=== PATIENT | female | born 1985 | race Caucasian/White ===

== ENCOUNTER → 2016-08-07 | Outpatient (CLI) | payer OTHER ==
[~2016-08-07] MED LIST: PRENTAB66 PO
--- NOTE | 2016-08-07 17:07 | REP ---
Limited OB sonography: History: Assess cervical length. Findings: Scanning demonstrates a viable single intrauterine gestation in a cephalic lie. heart rate is recorded at 133 beats per minute. Closed cervical length measured trans vaginally is 3.0 cm. No funneling is seen. S/D ratio in the umbilical cord artery by Doppler is 1.94 (2.50-3.50). KEMAL is normal at 18.3 cm. heart rate 133 beats per minute. Signed by Ankur Garnica MD 08/07/2016 06:55 P
== END ==
LOC: M RAD 15:13
PROVIDERS: ATTEND Advanced Practice Midwife
DX: Z87.51 Personal history of pre-term labor (principal)

== ENCOUNTER → 2016-08-07 | Outpatient (REF) | payer OTHER | LOC: M LAB REF 12:56 | PROVIDERS: ATTEND Advanced Practice Midwife | DX: Z34.83 Encounter for supervision of other normal pregnancy, third trimester (principal) ==

== ENCOUNTER 2016-08-17 16:31 | Outpatient (CLI) | payer OTHER ==
[~2016-08-17] VITALS: Ht 167.6 cm; Wt 95.0 kg
[~2016-08-17 16:31] MED LIST changes: -MAKE250I IM; -ZANTTAB PO
[2016-08-17] MEDS ORDERED: ZANTTAB PO (16:48)
[2016-08-17] MEDS ORDERED: MAKE250I IM (16:48)
[2016-08-17 16:55] VITALS: BP 92/51
[2016-08-17] MEDS ORDERED: BETAMETHASONE SOLUSPAN 6MG/ML INJ 5ML (J0702) IM SCH (17:00)
[2016-08-17 18:37] VITALS: BP 107/51
--- NOTE | 2016-08-17 18:55 | REP ---
LIMITED OB ULTRASOUND: 08/17/2016. Clinical history: Supervision of , third trimester. Evaluate for growth, KEMAL and cervical length. Comparison: Endovaginal cervical ultrasound 08/07/2016, complete OB ultrasound 05/07/2016 and follow-up ultrasound 07/16/2016. Findings. There is a single intrauterine gestation in vertex position with the cervix imaged on endovaginal probe portion of this exam and measuring 3.5 cm. There is an anterior grade 0 placenta without previa or abruption. Amniotic fluid volume is visually normal with an index of 9.0. The largest pocket is 5.7 cm. Mid cord umbilical artery Doppler shows an S/D ratio of 1.9 with forward diastolic flow and resistive index of 0.47. Both measurements are below the usual normal range. heart rate is 147 and regular. biometry BPD 8 cm = 32 weeks HC 28.1 cm = 30 weeks 5 days AC 28.2 cm = 32 weeks 2 days FL 6.3 cm = 32 weeks 5 days HL 5.4 cm = 31 weeks 4 days This give an average ultrasound age of 31 weeks 6 days and compares well with established dating of 31 weeks 5 days. By LMP EDC is 10/14/2016. Estimated weight 1926 grams or 4 ounces 3 ounces, is 53rd percentile for that dating. Anatomy screening did not show the cord insertion clearly, which was previously seen in the April screening exam. Otherwise, the cranial vault, lateral ventricles, choroid plexus, thalami, cavum septum pellucidum, cerebellum and cisterna magna, face and profile views, lungs, four-chamber heart view, ventricular outflow tracts, diaphragm, left-sided stomach bubble, three-vessel cord, kidneys and bladder were seen and unremarkable. spine and the extremities are not well evaluated due to position and late gestation. Impression: 1. Single intrauterine gestation in vertex presentation with cervix 3.5 cm long and closed, anterior grade 0 placenta without previa or abruption with normal amniotic fluid. 2. No visible anomalies. 3. No evidence of retroplacental hemorrhage or bleed. The presence of a nuchal cord cannot be entirely ruled out as it drapes over the neck but cannot be definitively seen wrapping around it. 4. Heart rate 147 and regular. 5. Biophysical profile score 8/8.6. Normal interval growth. Size and dates match LMP with 53rd percentile. weight at 1926 grams. Signed by Suman Neal MD 08/17/2016 08:37 P
[2016-08-17 20:25] LABS: MEAN CORPUSCULAR HEMOGLOBIN 30.5 pg (27.0-33.0); MEAN CORPUSCULAR HGB CONC 33.5 g/dl (32.0-36.5); RED CELL DISTRIBUTION WIDTH 13.8 % (11.5-14.5)
[2016-08-17] MEDS: raNITIdine SYRUP 150 MG/10 ML UDC PO SCH (21:00)
[2016-08-17] MEDS ORDERED: hydrOXYzine 50 MG TAB PO SCH (21:00)
[2016-08-18] MEDS: raNITIdine SYRUP 150 MG/10 ML UDC PO SCH (09:46)
[2016-08-18 18:18] VITALS: BP 126/58
[2016-08-18] MEDS ORDERED: BETAMETHASONE SOLUSPAN 6MG/ML INJ 5ML (J0702) IM SCH (19:30)
== END 2016-08-18 20:40 | disposition home or self-care (01) ==
LOC: M LDO 16:31
PROVIDERS: ATTEND Advanced Practice Midwife
DX: O26.893 Other specified pregnancy related conditions, third trimester (principal); R10.9 Unspecified abdominal pain; Z3A.31 31 weeks gestation of pregnancy; O09.213 Supervision of pregnancy with history of pre-term labor, third trimester; Z88.8 Allergy status to other drugs, medicaments and biological substances; O99.343 Other mental disorders complicating pregnancy, third trimester; F31.9 Bipolar disorder, unspecified
CPT/HCPCS: 36415; 59025; 76816; 76817; 76819; 80306; 81001; 82950; 85027; 87081; 87086; J0702

== ENCOUNTER → 2016-08-17 | Outpatient (REF) | payer OTHER ==
[~2016-08-17] MED LIST changes: +MAKE250I IM; +ZANTTAB PO
== END ==
LOC: M LAB REF 10:22
PROVIDERS: ATTEND Advanced Practice Midwife
DX: O60.00 Preterm labor without delivery, unspecified trimester (principal); Z3A.00 Weeks of gestation of pregnancy not specified

== ENCOUNTER 2016-08-20 13:24 | Outpatient (CLI) | payer OTHER ==
[~2016-08-20] VITALS: Ht 167.6 cm; Wt 95.0 kg
[~2016-08-20 13:24] MED LIST changes: +MAKE250I IM; +ZANTTAB PO
[2016-08-20 13:49] VITALS: BP 101/50
[2016-08-20 15:14] VITALS: BP 109/53
[2016-08-20 17:24] VITALS: BP 139/75
== END 2016-08-20 17:51 | disposition home or self-care (01) ==
LOC: M LDO 13:24
PROVIDERS: ATTEND Advanced Practice Midwife
DX: O47.03 False labor before 37 completed weeks of gestation, third trimester (principal); Z3A.32 32 weeks gestation of pregnancy; Z88.8 Allergy status to other drugs, medicaments and biological substances

== ENCOUNTER 2016-08-25 15:51 | Outpatient (CLI) | payer OTHER ==
[2016-08-25 16:18] VITALS: BP 116/73
== END 2016-08-25 18:02 | disposition home or self-care (01) ==
LOC: M LDO 15:51
PROVIDERS: ATTEND Specialist
DX: O26.893 Other specified pregnancy related conditions, third trimester (principal); Z3A.32 32 weeks gestation of pregnancy; R10.2 Pelvic and perineal pain

== ENCOUNTER 2016-08-27 17:45 | Inpatient (IN) | payer OTHER ==
[~2016-08-27] VITALS: Ht 167.6 cm; Wt 96.0 kg
[2016-08-27 18:14] VITALS: BP 103/51
[2016-08-27] MEDS ORDERED: AZITHROMYCIN 250 MG TAB PO SCH (20:00)
[2016-08-27 20:20] VITALS: BP 126/67
[2016-08-27] MEDS: AMPICILLIN SOD 2 GM in D5W MINI-BAG PLUS 100 ML IV SCH (20:31)
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
[2016-08-27 20:43] LABS: MEAN CORPUSCULAR HEMOGLOBIN 29.2 pg (27.0-33.0); MEAN CORPUSCULAR VOLUME 88.6 fl (80.0-96.0); RED CELL DISTRIBUTION WIDTH 13.8 % (11.5-14.5); WHITE BLOOD COUNT 12.1 K/mm3 (4.0-10.0)
[2016-08-27 21:12] VITALS: BP 126/64
[2016-08-27] MEDS ORDERED: diphenhydrAMINE 25 MG CAP PO PRN (22:45)
[2016-08-28 00:42] VITALS: BP 88/50
[2016-08-28 00:43] VITALS: BP 98/53
[2016-08-28] MEDS ORDERED: ACETAMINOPHEN TAB 650MG DOSE (2X325MG) PO PRN (01:00)
[2016-08-28] MEDS: AMPICILLIN SOD 2 GM in D5W MINI-BAG PLUS 100 ML IV SCH (01:28)
[2016-08-28] MEDS ORDERED: ceFAZolin 2 GM/D5W 50 ML IV BAG (J0690) As Ordered ONE (04:46)
[2016-08-28] MEDS ORDERED: BICITRA 30ML SOLN UDC As Ordered ONE (04:47)
[2016-08-28] MEDS ORDERED: MIDAZOLAM INJ 2 MG/2 ML VIAL (J2250) As Ordered ONE (04:59)
[2016-08-28] MEDS ORDERED: fentaNYL 100 MCG/2 ML INJECTION (J3010) As Ordered ONE ×2 (05:05→06:14)
[2016-08-28] MEDS ORDERED: OXYTOCIN INJ 10 UNITS/ML VIAL (J2590) As Ordered ONE (05:33)
[2016-08-28] MEDS ORDERED: ONDANSETRON 4MG/2ML VIAL (J2405) As Ordered ONE (05:33)
[2016-08-28] MEDS ORDERED: PROPOFOL 200 MG/20 ML VIAL As Ordered ONE (05:33)
[2016-08-28] MEDS ORDERED: SUCCINYLCHOLINE 100 MG/5 ML SYRINGE (J0330) As Ordered ONE (05:33)
[2016-08-28] MEDS ORDERED: KETOROLAC 60 MG/2 ML VIAL (J1885) As Ordered ONE (05:33)
[2016-08-28] MEDS ORDERED: LR 1,000 ML IV SCH ×2 (05:58→06:30)
[2016-08-28] MEDS ORDERED: RHOGAM 300 MCG (1500 IU) INJ (J2790) IM SCH (06:00)
[2016-08-28] MEDS ORDERED: PERCOCET 5MG/325MG TAB PO PRN ×3 (06:00→06:30)
[2016-08-28] MEDS ORDERED: OXYTOCIN DRIP 30 UNITS in APPROPRIATE DILUENT 1 EA IV ONE (06:00)
[2016-08-28] MEDS ORDERED: ONDANSETRON 4MG/2ML VIAL (J2405) IV PRN ×3 (06:00→06:30)
[2016-08-28] MEDS ORDERED: DOCUSATE SODIUM 100 MG CAP PO PRN (06:00)
[2016-08-28] MEDS ORDERED: MEASLES,MUMPS,RUBELLA VACCINE INJ (MMR-II) (90707) SC SCH (06:00)
[2016-08-28] MEDS: fentaNYL 100 MCG/2 ML INJECTION (J3010) IV PRN ×4 (06:16→06:40)
[2016-08-28] MEDS ORDERED: PERCOCET 5MG/325MG TAB As Ordered ONE (06:16)
[2016-08-28] MEDS ORDERED: NS 1,000 ML IV SCH (06:20)
[2016-08-28] MEDS ORDERED: NALOXONE INJ 0.4 MG/1 ML VIAL (J2310) IV PRN (06:30)
[2016-08-28] MEDS ORDERED: EPIDURAL/PCA KEYS XX PRN (06:30)
[2016-08-28] MEDS ORDERED: diphenhydrAMINE INJ 50MG/ML VIAL (J1200) IV PRN (06:30)
[2016-08-28] MEDS ORDERED: MORPHINE 1MG/ML IN 0.9% NACL 100ML IV BAG IV PRN (06:30)
[2016-08-28] MEDS ORDERED: NALBUPHINE HCL 10 MG/ML AMP (J2300) IV PRN (06:30)
[2016-08-28] MEDS ORDERED: METOCLOPRAMIDE INJ 10MG/2ML VIAL (J2765) IV PRN (06:30)
[2016-08-28] MEDS ORDERED: MEPERIDINE INJ 25 MG/ML VIAL (J2175) IV PRN (06:30)
[2016-08-28] MEDS ORDERED: MORPHINE 1MG/ML IN 0.9% NACL 100ML IV BAG As Ordered ONE (06:34)
[2016-08-28 07:27] LABS: METHADONE URINE NEGATIVE (NEGATIVE)
[2016-08-28 07:30] VITALS: BP 80/52
--- NOTE | 2016-08-28 07:56 | REP ---
Clinical: Stat section. Technique: Portable supine intraoperative view of the abdomen and pelvis. Findings: Bowel gas pattern is nonspecific. No foreign body material or instrumentation appreciated. Impression: No foreign body or instrument identified. Signed by Faisal Harvey MD 08/28/2016 07:47 A
[2016-08-28 08:00] VITALS: BP 99/52
[2016-08-28 09:00] VITALS: BP 102/54
[2016-08-28] MEDS ORDERED: busPIRone 10 MG TAB PO SCH (09:00)
[2016-08-28] MEDS ORDERED: PRENATAL VITAMIN TAB PO SCH (09:00)
[2016-08-28] MEDS ORDERED: LACTATED RINGER'S 1000 ML IV STA (09:56)
[2016-08-28 10:00] VITALS: BP 95/62
[2016-08-28] MEDS ORDERED: KETOROLAC 30 MG/ML VIAL (J1885) IV SCH (12:00)
--- NOTE | 2016-08-29 11:15 | RO ---
DATE OF PROCEDURE: 08/28/2016 PREPROCEDURE DIAGNOSIS: Prolonged bradycardia and non-reassuring heart tracing. POSTPROCEDURE DIAGNOSIS: Prolonged bradycardia and non-reassuring heart tracing. PROCEDURE: Truly emergent primary delivery via Pfannenstiel skin incision. SURGEON: Dr. Jona Chou. MILL WORK: Nany Villafuerte, Certified Nurse Dry Cleaning Supervisor. ANESTHESIA: General. ESTIMATED BLOOD LOSS: FLUIDS: Unknown. SPECIMEN: Placenta. INDICATION: Mrs. Chao is a 30-year-old patient at approximately 33 weeks with premature ruptured membranes that was admitted to the [facility] practice of which I am not a part. Mrs. Villafuerte, the certified nurse relay dispatcher, was taking care of this patient when a terminal bradycardia occurred. Because I was the only doctor in the hospital and despite my not being a part of their practice, they called me in the call room. I responded immediately and when I entered the patient's room, the bed was already being disconnected from the wall and the patient was being rolled to the operating room. I verbally instructed the patient that we would have to perform an emergent delivery under general anesthesia to give the best chance of life to her unborn baby. As for the timeline as described to me by Mrs. Villafuerte the relay dispatcher at 4:42, she was in the room, diagnosed the term bradycardia, called the at 4:44. I was called at 4:[address] Prabhakar was called who was at his home and who immediately came en route. We were in the operating room at 4:50. Skin incision was at 4:56 and infant was born at 4:57. DESCRIPTION: Patient was taken from the delivery room via hospital bed to the operating room where she was emergently transferred to the operating room table. Her legs were strapped down and a betadine splash prep was performed. As soon as Dr. Joshua informed me that the cord was between the patient's vocal cords and secure and confirmed, I performed a stat Pfannenstiel skin incision down to the layer of the fascia which was extended with a fascial technique bilaterally. I then entered the peritoneal cavity bluntly and I could quickly ascertain no scar tissue present. Created an adequate peritoneal window. Bladder blade was placed and a low transverse uterine incision was quickly performed with the infant easily delivered. The infant was limp, had no tone and did not cry. Skin incision to baby's was less than 1 minute. The cord was clamped times two and cut. The infant was handed to the awaiting resuscitation team. Dr. Daly, the job superintendent arrived shortly after delivery. Please see their note for resuscitation details of the infant. Cord gases were attempted, however there was no blood in any of the arterial blood vessels despite trying three times I was able to obtain a sample of blood for the venous gas, however, I was informed later that this clotted and was not runable. Cord blood was obtained for typing. Pitocin was started. Fundus was massaged and the placenta was delivered under traction without difficulty. The uterus was then delivered through the abdominal wall wrapped in a warm sponge and the uterus was cleared of all clots and debris with two dry sponges. Bladder blade was placed and a running suture of #0 Vicryl from left to right in locked fashion was used to close the hysterotomy. #0 Monocryl was then used to imbricate. Both fallopian tubes and ovaries were normal. Tone was good. The uterus was returned to its anatomical position after copious irrigation behind the uterus. Colic gutters were cleared of all clots and debris and one final inspection of the uterine cavity showed hemostasis. At this time, Dr. Prabhakar relieved me as the patient was a patient of their practice and for all final fluid and further procedure and findings, please see Dr. Prabhakar's dictation. Again I want to re-emphasize that I knew nothing of the history and/or physical on this patient and I intervened due to the dire nature of the situation and to give the unborn fetus the best chance. Dr. Prabhakar's group will see the patient for all postoperative and followup care. SORAIDA
[2016-08-29] MEDS ORDERED: IBUPROFEN 800 MG TAB PO SCH (14:00)
--- NOTE | 2016-08-31 10:22 | RO ---
DATE OF PROCEDURE: 08/28/2016 PREPROCEDURE DIAGNOSIS: Status post emergent section for prolonged bradycardia. POSTOPERATIVE DIAGNOSIS: Status post emergent section for prolonged bradycardia. PROCEDURE: Closure of abdominal wall layers following primary section. SURGEON: Kalyan Prabhakar MD MACHINE QUILT STUFFER: Anita Villafuerte CNM ANESTHESIA: General. ESTIMATED BLOOD LOSS: 600 mL total. FINDINGS/DESCRIPTION OF PROCEDURE: The patient was status post emergent section. The baby was already delivered when I arrived. The uterus had already been closed in multiple layers. I scrubbed in to the procedure and relieved Dr. Chou, who had done the emergent section. Upon inspection of the uterus it was intact with good hemostasis. All peritoneal surfaces appeared to be hemostatic and intact. The pericolic gutters were cleared of any clots or debris. The peritoneum was then closed with #2-0 Vicryl in a fashion. The fascia was closed with #0 Vicryl in a running fashion. Subcutaneous tissue was irrigated. Deep layers were closed with #3-0 chromic. The skin was closed with #4-0 Monocryl subcuticular sutures. Sponge and instrument counts were not done due to the emergent nature of the procedure. An abdominal x-ray was performed postoperatively. There was no evidence of retained sponges or instruments in the abdomen. The patient was subsequently extubated and went to recovery room. SORAIDA
== END 2016-08-28 13:20 | disposition short-term general hospital (02) | DRG 540 ==
LOC: M LDO 17:45 → M LDI 18:47 → M OBS 08-28 07:33
PROVIDERS: ADMIT Advanced Practice Midwife; ATTEND Advanced Practice Midwife
PROC: 10D00Z1 Extraction of Products of Conception, Low, Open Approach (ICD-10-PCS; principal; 2016-08-28 05:54)
DX: O42.012 Preterm premature rupture of membranes, onset of labor within 24 hours of rupture, second trimester (principal); Z37.0 Single live birth; Z3A.33 33 weeks gestation of pregnancy; F17.210 Nicotine dependence, cigarettes, uncomplicated; O99.334 Smoking (tobacco) complicating childbirth; Z79.899 Other long term (current) drug therapy; Z88.8 Allergy status to other drugs, medicaments and biological substances; O76 Abnormality in fetal heart rate and rhythm complicating labor and delivery; O31.11X0 Continuing pregnancy after spontaneous abortion of one fetus or more, first trimester, not applicable or unspecified

== ENCOUNTER 2017-05-04 23:42 | Emergency (ER) | payer MEDICAID, OTHER ==
[2017-05-05] MEDS: BENZONATATE 100 MG CAP PO ×2 (03:23)
[2017-05-05] MEDS: ALBUTEROL 90 MCG/ACT 8GM HFA INHALER INH ×2 (03:23)
== END 2017-05-05 03:30 | disposition home or self-care (01) ==
LOC: M ED 23:42
DX: J06.9 Acute upper respiratory infection, unspecified (principal); F17.210 Nicotine dependence, cigarettes, uncomplicated; Z79.899 Other long term (current) drug therapy; Z88.8 Allergy status to other drugs, medicaments and biological substances
CPT/HCPCS: 87804

== ENCOUNTER → 2017-05-06 | Outpatient (CLI) | payer OTHER, MEDICAID | LOC: M RAD 10:23 | DX: O03.9 Complete or unspecified spontaneous abortion without complication (principal); Z3A.01 Less than 8 weeks gestation of pregnancy | CPT/HCPCS: 76801 ==

== ENCOUNTER → 2017-07-16 | Outpatient (CLI) | payer OTHER ==
[2017-07-16 09:52] LABS: HEMATOCRIT 39.9 % (36.0-47.0); HEMOGLOBIN 12.6 g/dl (12.0-15.5); MEAN CORPUSCULAR HEMOGLOBIN 26.6 pg (27.0-33.0); MEAN CORPUSCULAR HGB CONC 31.6 g/dl (32.0-36.5); MEAN CORPUSCULAR VOLUME 84.4 fl (80.0-96.0); PLATELET COUNT, AUTOMATED 257 10^3/uL (150-450); RED BLOOD COUNT 4.73 10^6/uL (4.00-5.40); RED CELL DISTRIBUTION WIDTH 14.1 % (11.5-14.5); WHITE BLOOD COUNT 8.7 10^3/uL (4.0-10.0)
[2017-07-16 10:15] LABS: ESTIMATED AVERAGE GLUCOSE 100 MG/DL (60-110); HEMOGLOBIN A1c 5.1 %
[2017-07-16 10:25] LABS: ALBUMIN 3.8 GM/DL (3.2-5.2); ALBUMIN/GLOBULIN RATIO 1.23 (1.00-1.93); ALKALINE PHOSPHATASE 60 U/L (45-117); ALT/SGPT 18 U/L (12-78); ANION GAP 5 MEQ/L (8-16); AST/SGOT 10 U/L (7-37); BILIRUBIN,TOTAL 0.2 MG/DL (0.2-1.0); BLOOD UREA NITROGEN 11 MG/DL (7-18); CALCIUM LEVEL 8.7 MG/DL (8.5-10.1); CARBON DIOXIDE LEVEL 30 MEQ/L (21-32); CHLORIDE LEVEL 107 MEQ/L (98-107); CHOLESTEROL LEVEL 143 MG/DL (<200); CHOLESTEROL RISK RATIO 2.344 (<5); CREATININE FOR GFR 0.83 MG/DL (0.55-1.30); FERRITIN 13 NG/ML (8-252); GLOMERULAR FILTRATION RATE > 60.0 (>60); GLUCOSE, FASTING 85 MG/DL (70-100); HDL CHOLESTEROL 61 MG/DL (>40); IRON (FE) 26 UG/DL (50-170); LDL CHOLESTEROL 68.2 MG/DL (<100); NON-HDL-C 82 MG/DL; PERCENT SATURATION 6.8 % (13.2-45.0); POTASSIUM SERUM 4.4 MEQ/L (3.5-5.1); SODIUM LEVEL 142 MEQ/L (136-145); THYROXINE (T4) 7.9 UG/DL (4.5-12.0); TOTAL IRON BINDING CAPACITY 381 UG/DL (250-450); TOTAL PROTEIN 6.9 GM/DL (6.4-8.2); TRIGLYCERIDES LEVEL 69 MG/DL (<150)
[2017-07-16 10:26] LABS: TOTAL 25(OH) VITAMIN D 32.2 NG/ML (30.0-100.0)
[2017-07-16 10:27] LABS: TOTAL T3 116.2 NG/DL (60.0-181.0)
== END ==
LOC: M LAB 09:13
DX: D64.9 Anemia, unspecified (principal); R53.83 Other fatigue
CPT/HCPCS: 71046

== ENCOUNTER → 2017-09-10 | Outpatient (CLI) | payer OTHER | LOC: M RAD 09:52 | DX: M54.2 Cervicalgia (principal) | CPT/HCPCS: 72052 ==

== ENCOUNTER → 2018-03-17 | Outpatient (CLI) | payer MEDICAID, OTHER ==
[2018-03-17 14:36] LABS: BASO % 0.4 % (0.0-1.0); EOS # 0.2 10^3/uL (0.0-0.50); HEMATOCRIT 37.8 % (36.0-47.0); HEMOGLOBIN 12.5 g/dl (12.0-15.5); IMMATURE GRANULOCYTE % 1.4 % (0-3.0); LYMPH % 21.2 % (24.0-44.0); MEAN CORPUSCULAR HEMOGLOBIN 28.6 pg (27.0-33.0); MEAN CORPUSCULAR HGB CONC 33.1 g/dl (32.0-36.5); MEAN CORPUSCULAR VOLUME 86.5 fl (80.0-96.0); MONO # 0.5 10^3/uL (0.0-0.8); NEUTROPHILS # 6.7 10^3/uL (1.8-7.7); PLATELET COUNT, AUTOMATED 249 10^3/uL (150-450); RED BLOOD COUNT 4.37 10^6/uL (4.00-5.40); RED CELL DISTRIBUTION WIDTH 13.2 % (11.5-14.5); WHITE BLOOD COUNT 9.6 10^3/uL (4.0-10.0)
[2018-03-17 17:05] LABS: CHLAMYDIA DNA AMPLIFICATION NEGATIVE (NEGATIVE); GC DNA AMPLIFICATION NEGATIVE (NEGATIVE)
[2018-03-18 11:18] LABS: HEPATITIS C VIRUS ABY INDEX 0.1 INDEX (<0.8)
[2018-03-18 11:18] LABS: HBsAg Prenatal NEGATIVE (NEGATIVE); HIV 1&2 SCREEN CENTAUR NEGATIVE (NEGATIVE); RUBELLA IgG QUALITATIVE IMMUNE (IMMUNE)
== END ==
LOC: M LAB 14:04
DX: Z34.81 Encounter for supervision of other normal pregnancy, first trimester (principal); Z3A.00 Weeks of gestation of pregnancy not specified
CPT/HCPCS: 86762

== ENCOUNTER → 2018-03-21 | Outpatient (CLI) | payer MEDICAID | LOC: M SMT 13:39 | DX: Z34.81 Encounter for supervision of other normal pregnancy, first trimester (principal); Z36.89 Encounter for other specified antenatal screening | CPT/HCPCS: 36415 ==

== ENCOUNTER 2018-03-23 22:32 | Emergency (ER) | payer OTHER, MEDICAID, SELFPAY ==
[2018-03-23] MEDS: NS 1,000 ML IV (23:18)
[2018-03-23 23:21] LABS: BASO # 0.1 10^3/uL (0.0-0.2); BASO % 0.5 % (0.0-1.0); EOS # 0.2 10^3/uL (0.0-0.50); EOS % 1.5 % (0.0-3.0); HEMATOCRIT 37.2 % (36.0-47.0); HEMOGLOBIN 12.2 g/dl (12.0-15.5); IMMATURE GRANULOCYTE % 0.8 % (0-3.0); LYMPH # 2.6 10^3/uL (1.5-4.5); LYMPH % 21.6 % (24.0-44.0); MEAN CORPUSCULAR HEMOGLOBIN 28.4 pg (27.0-33.0); MEAN CORPUSCULAR HGB CONC 32.8 g/dl (32.0-36.5); MEAN CORPUSCULAR VOLUME 86.5 fl (80.0-96.0); MONO # 0.7 10^3/uL (0.0-0.8); MONO % 5.5 % (0.0-5.0); NEUTROPHILS # 8.3 10^3/uL (1.8-7.7); NEUTROPHILS % 70.1 % (36.0-66.0); PLATELET COUNT, AUTOMATED 230 10^3/uL (150-450); RED CELL DISTRIBUTION WIDTH 13.4 % (11.5-14.5); WHITE BLOOD COUNT 11.9 10^3/uL (4.0-10.0)
[2018-03-24 00:02] LABS: ALBUMIN 3.2 GM/DL (3.2-5.2); ALKALINE PHOSPHATASE 53 U/L (45-117); ALT/SGPT 14 U/L (12-78); ANION GAP 9 MEQ/L (8-16); AST/SGOT 12 U/L (7-37); BILIRUBIN,DIRECT < 0.1 MG/DL (0.0-0.2); BILIRUBIN,TOTAL 0.1 MG/DL (0.2-1.0); BLOOD UREA NITROGEN 13 MG/DL (7-18); CALCIUM LEVEL 8.4 MG/DL (8.5-10.1); CARBON DIOXIDE LEVEL 24 MEQ/L (21-32); CHLORIDE LEVEL 105 MEQ/L (98-107); CREATININE FOR GFR 0.67 MG/DL (0.55-1.30); GLOMERULAR FILTRATION RATE > 60.0 (>60); GLUCOSE, FASTING 84 MG/DL (70-100); HCG, SERUM QUANTITATIVE 44658 MIU/ML; LIPASE 135 U/L (73-393); POTASSIUM SERUM 3.7 MEQ/L (3.5-5.1); SODIUM LEVEL 138 MEQ/L (136-145); TOTAL PROTEIN 6.4 GM/DL (6.4-8.2)
[2018-03-24 00:17] LABS: KETONE, URINE AUTO RFX NEGATIVE (NEGATIVE); LEUKOCYTE ESTERASE UR AUTO RFX NEGATIVE (NEGATIVE); NITRITE, URINE AUTO RFX NEGATIVE (NEGATIVE); RBC, URINE AUTO RFX 0 /HPF (0-3); SPECIFIC GRAVITY UR AUTO RFX 1.016 (1.002-1.035); SQUAM EPITHELIAL CELL UR AURFX 0 /HPF (0-6); WBC, URINE AUTO RFX 0 /HPF (0-3)
== END 2018-03-24 00:56 | disposition home or self-care (01) ==
LOC: M ED 03-24 00:56
DX: O26.891 Other specified pregnancy related conditions, first trimester (principal); O99.341 Other mental disorders complicating pregnancy, first trimester; F31.9 Bipolar disorder, unspecified; F41.9 Anxiety disorder, unspecified; Z88.8 Allergy status to other drugs, medicaments and biological substances; Z3A.11 11 weeks gestation of pregnancy
CPT/HCPCS: 76801

== ENCOUNTER → 2018-04-05 | Outpatient (CLI) | payer OTHER ==
[~2018-04-05] MED LIST changes: +CEFD1CAP8 PO; +FERR325T3 PO; +HYDR-3363 PO; +LATU20TA PO; +MUCI600T37 PO; +TESS100C PO; +TOPA50TA8 PO; +VITA50005 PO; +VYVA20CA PO; +[UNRECOGNIZED DRUG - OTHER] PO
== END ==
LOC: M SMT 15:04
PROVIDERS: ATTEND Advanced Practice Midwife
DX: O09.211 Supervision of pregnancy with history of pre-term labor, first trimester (principal)

== ENCOUNTER → 2018-05-11 | Outpatient (CLI) | payer OTHER ==
[2018-05-11 12:44] LABS: ALBUMIN 2.9 GM/DL (3.2-5.2); ALT/SGPT 11 U/L (12-78); BILIRUBIN,DIRECT < 0.1 MG/DL (0.0-0.2); BILIRUBIN,TOTAL 0.2 MG/DL (0.2-1.0); GLUCOSE CHALLENGE TEST 1 HOUR 76 MG/DL (LESS THAN 140)
--- NOTE | 2018-05-11 22:41 | REP ---
Clinical: Anatomical evaluation. Comparison: 03/23/2018 the . Findings: Examination demonstrates a single live intrauterine in breech presentation. motion is identified by technologist. Placenta is noted posterior and grade there are grade zero without evidence for placenta previa or abruption. Amniotic fluid volume is normal. Cervix measures 5.0 cm in length and appears closed. Nuchal cord cannot be excluded. Gestational age by LMP 17 weeks 6 days with PABLO 10/13/2018 . Gestational age by current measurements 18 weeks 1 day with PABLO 10/11/2018 . FHR equals 158 beats per minute. BPD 4.0 cm 18 weeks 1 day HC 14.1 cm 17 weeks 3 days AC 12.5 cm 18 weeks 1 day FL 2.9 cm 18 weeks 5-day HL 2.6 cm 18 weeks 2 days HC/AC ratio 1.13 Estimated weight 234 grams (63rd percentile). Anatomical assessment demonstrates normal structures including cranium, choroid plexus, cavum, cerebellum/posterior fossa, facial features, lungs, diaphragm, stomach, cord insertion/three-vessel cord, bladder, spine, and lower extremities. Limited evaluation of the facial profile, heart/ventricular outflow tracts, kidneys and upper extremities due to lie and maternal body habitus. Impression: Single live intrauterine in breech presentation demonstrating appropriate interval growth. Anatomical limitations as noted above warrant reevaluation and follow-up. Nuchal cord cannot be excluded. Electronically Signed by Faisal Harvey MD 05/11/2018 10:33 P
== END ==
LOC: M LAB 09:30
PROVIDERS: ATTEND Advanced Practice Midwife
DX: O34.211 Maternal care for low transverse scar from previous cesarean delivery (principal); Z3A.17 17 weeks gestation of pregnancy

== ENCOUNTER → 2018-06-09 | Outpatient (CLI) | payer OTHER ==
--- NOTE | 2018-06-10 09:13 | REP ---
Clinical: Anatomical evaluation. Comparison: 05/11/2018 . Findings: Examination demonstrates a single live intrauterine in transverse (head to maternal right) presentation. motion is identified by technologist. Placenta is noted posterior and grade grade 1 without evidence for placenta previa or abruption. Amniotic fluid volume is normal. Cervix measures 4.2 cm in length and appears closed. No evidence for nuchal cord. Gestational age by LMP 22 weeks 0 days with PABLO 10/13/2018 . Gestational age by current measurements 21 weeks 5 days with PBALO 10/15/2018 . FHR equals 144 beats per minute. Estimated weight 488 grams ( 54th percentile). Anatomical assessment demonstrates normal structures including cranium, choroid plexus, cavum, cerebellum/posterior fossa, facial features, lungs, four-chamber heart/ventricular outflow tracts, diaphragm, stomach, cord insertion/three-vessel cord, kidneys/bladder, spine, and extremities. Impression: Single live intrauterine in transverse lie demonstrating appropriate interval growth. In conjunction with prior examination, anatomical assessment is complete and normal. Electronically Signed by Faisal Harvey MD 06/10/2018 09:02 A
== END ==
LOC: M SMT 12:57
PROVIDERS: ATTEND Advanced Practice Midwife
DX: O09.211 Supervision of pregnancy with history of pre-term labor, first trimester (principal); Z3A.21 21 weeks gestation of pregnancy

== ENCOUNTER 2018-06-23 00:07 | Outpatient (CLI) | payer OTHER ==
[~2018-06-23] VITALS: Ht 170.2 cm; Wt 108.7 kg
[2018-06-23 00:25] VITALS: BP 106/56
[2018-06-23 01:14] LABS: APPEARANCE, URINE CLEAR (CLEAR); BACTERIA, URINE AUTO NEGATIVE (NEGATIVE); BILIRUBIN, URINE AUTO NEGATIVE (NEGATIVE); BLOOD, URINE BLOOD NEGATIVE (NEGATIVE); COLOR, URINE YELLOW (YELLOW); GLUCOSE, URINE (UA) AUTO NEGATIVE (NEGATIVE); KETONE, URINE AUTO NEGATIVE (NEGATIVE); LEUKOCYTE ESTERASE, URINE AUTO NEGATIVE (NEGATIVE); MUCUS, URINE SMALL (NEGATIVE); NITRITE, URINE AUTO NEGATIVE (NEGATIVE); PROTEIN, URINE AUTO NEGATIVE (NEGATIVE); RBC, URINE AUTO 1 /HPF (0-3); SPECIFIC GRAVITY URINE AUTO 1.028 (1.002-1.035); SQUAMOUS EPITHELIAL CELL UR AU 0 /HPF (0-6); WBC, URINE AUTO 2 /HPF (0-3)
[2018-06-23] MEDS ORDERED: ACETAMINOPHEN 500 MG TAB PO PRN (01:30)
[2018-06-23 01:32] VITALS: BP 118/74
--- NOTE | 2018-06-23 06:35 | IPN ---
DATE: 06/23/2017 SUBJECTIVE: Mireya is a 32-year-old, 5, para 2-2-0-3, at of 24 weeks' gestation with an expected date of confinement (EDC) of 10/13/2018 based on last menstrual period and confirmed by first trimester ultrasound. She presents to labor and delivery today with a report of just generalized back pain and some pubic discomfort. She does report being ill early in the evening with recurrent bouts of diarrhea. She denies any recent episode, the last episode at 1900. She does deny fever, body aches and chills. Denies vaginal bleeding, leakage of fluid and painful contractions. The fetus has been active. Of note, her child was ill with the same gastroenteritis for the last 2 days. care initiated at [facility] in the first trimester. course complicated by a history of premature rupture of membranes (PPROM) x two, delivery with , prior section, current diagnosis of cholestasis. She is administering Layla shots to herself at home weekly. OBSTETRICAL HISTORY: June 2005, 40 weeks gestation, 7 pound 11 ounce female, vaginal delivery, uncomplicated. July 2008, 40 weeks gestation, 6 pound 7 ounce male, vaginal delivery, uncomplicated. September 2012, 23 weeks PPROM, subchorionic hemorrhage, fetus . August 2016, 33 weeks PPROM, with a stat section for bradycardia. OBSTETRIC LABS: A+, antibody screen negative, rubella immune, VDRL nonreactive. Urine culture no growth. Hepatitis B surface antigen negative. HIV negative. Hepatitis C antibody not performed. Gonorrhea and chlamydia negative. Panorama testing DNA, low risk, female fetus, bile acid salts 12.8 in March. Early 1-hour glucose test 76. Liver enzymes, AST 8, ALT 11, normal. PAST MEDICAL HISTORY: Severe anemia following section. She did undergo blood transfusion. Smoker prior to . Childhood varicella. FAMILY HISTORY: Heart disease, epilepsy, psychiatric illness, depression, autism, cystic fibrosis. SURGERIES: section. SOCIAL HISTORY: The patient is single, however, her partner is at bedside and supportive. She was a smoker prior to . Denies alcohol and drug use. No history of any sexually transmitted infections. Denies history of abuse - physical, sexual and emotional. ALLERGIES: - LAMICTAL - COMPAZINE CURRENT MEDICATIONS: - vitamin - iron - vitamin - [place] - Zofran as needed - Reglan as needed - Lexapro 5 mg OBJECTIVE: Vital signs are stable. Temperature 98.5, pulse 75, BP is 106/56. She is alert and oriented times three. She does not appear uncomfortable. heart rate is 145. Appropriate for gestational age. Her abdomen is soft, nontender. There is no pattern of contractions. Sterile speculum exam negative Valsalva, negative pooling, negative ferning, negative Nitrazine. Normal physiological discharge. Sterile vaginal exam, her cervix is long, thicken and closed. UA: negative nitrites, negative blood, negative leuks ASSESSMENT: Intrauterine at 24 weeks. heart rate appropriate for 24 weeks of gestational age. Likely a viral illness. PLAN: Discharge the patient to home. She has Tylenol for general aches and pains. She is to keep her visit which is scheduled next week. Continue her medications as ordered. I did review signs or symptoms of PPROM, labor, danger signs, access to care. The patient and her partner have had all their questions answered and do desire to be discharged. SORAIDA
== END 2018-06-23 01:35 | disposition home or self-care (01) ==
LOC: M LDO 00:07
PROVIDERS: ATTEND Advanced Practice Midwife
DX: O26.892 Other specified pregnancy related conditions, second trimester (principal); R10.30 Lower abdominal pain, unspecified; Z3A.24 24 weeks gestation of pregnancy

== ENCOUNTER 2018-08-24 17:58 | Outpatient (CLI) | payer OTHER ==
[~2018-08-24] VITALS: Ht 170.2 cm; Wt 110.0 kg
[2018-08-24] MEDS ORDERED: LEXA1TAB PO (18:18)
[2018-08-24] MEDS ORDERED: VITAD1000T PO (18:18)
[2018-08-24] MEDS ORDERED: UNIS25TA3 PO (18:18)
[2018-08-24 21:39] VITALS: BP 127/52
--- NOTE | 2018-08-24 21:56 | REPVR ---
EXAM: US , Limited EXAM DATE/TIME: 08/24/2018 9:01 PM CLINICAL HISTORY: 32 years old, female; Signs and symptoms; Lmp or gestational age (in weeks): 32; Antepartum complications; Other: C/O leaking fluid; ; Additional info: C/O leaking fluid. Estefania TECHNIQUE: Imaging protocol: Real-time ultrasound of the maternal uterus with image documentation. Exam focused on the clinical indication. COMPARISON: US OBS FOLL UP OR REPEAT EACH GES 08/05/2018 10:48 AM FINDINGS: There is a single intrauterine gestation in cephalic presentation. heart rate measures 141 beats per minute. anatomic measurements were not obtained, and anatomic details were not assessed on this limited exam. The amniotic fluid index measures 20.1 cm. The placenta is posterior, without demonstrated previa. The cervix is closed and measures 4.4 cm in length. IMPRESSION: Single viable intrauterine gestation without demonstrated complication. Electronically signed by: Dean Miller On 08/24/2018 21:55:46 PM
--- NOTE | 2018-08-24 23:21 | IPN ---
DATE: 08/24/2018 Mireya is a 32-year-old 5, para 2-2-0-3, 32-6/7 weeks gestation with an EDC of 10/13/2018 based on last menstrual period and confirmed by first trimester ultrasound. She presents to labor and delivery today following an add-on appointment in the office for complaint of decreased movement, backache and leakage of fluid from the vagina. She reported extreme low back pain that makes it difficult to move at times. She does deny any regular painful contractions and vaginal bleeding. Her care was initiated at [facility] in the first trimester. course complicated by a history of premature rupture of membranes (PPROM) times two. [place] injections have been initiated starting at week 16. Prior section with a desire for vaginal after (). Cholestasis was diagnosed in the first trimester. Planned delivery at 37 weeks. . OBSTETRICAL HISTORY June 2005: 40 weeks gestation 7 pound 11 ounce female vaginal delivery. July 2008: 40 weeks gestation with 6 pounds 7 ounces male vaginal delivery. September 2012: 23 weeks, 1 pound female, vaginal delivery, PPROM. . August 2016: 31 weeks 4 days, 4 pounds 15 ounce male, PPROM. section stat. OBSTETRIC LABS Blood type A+, antibody screen negative, rubella immune, VDRL nonreactive. Urine culture no growth. Hep B surface antigen negative, HIV negative. Hepatitis C antibody nonreactive. Gonorrhea and chlamydia negative. Panorama testing low risk for aneuploidy female fetus. She has not had her gestational diabetic screening nor has she had her repeat bile acids drawn as requested. PAST MEDICAL HISTORY: Cigarette smoker prior to . Childhood varicella. SURGERIES section, blood transfusion with the last delivery, severe anemia. FAMILY HISTORY: Pulmonary hypertension, CHF, psychiatric diagnoses depression, autism. SOCIAL HISTORY The patient is single. Her partner is supportive. He is not at bedside but she does have a friend present. She reports she quit smoking during . Denies alcohol and drug use. No history of any sexually transmitted infections and denies history of abuse physical, sexual or emotional. ALLERGIES: LAMICTAL and COMPAZINE. CURRENT MEDICATIONS - Zofran 4 mg ODT as needed (p.r.n.) - Layla weekly injections - ferrous gluconate by mouth twice a day - vitamin D - ursodiol 500 mg three times a day - vitamins. OBJECTIVE Temperature 97.6, pulse 93, respirations 18, BP 127/52. heart rate is 140 with moderate variability, positive accelerations, no decelerations observed. There is no pattern of regular contractions. She had a sterile speculum exam performed in the office by Anisa Kirkland CNM. Reported negative Valsalva, negative pooling, negative Nitrazine, negative ferning. Cervix appeared long, thick and closed. She has undergone an ultrasound here at labor and delivery. Amniotic fluid index is 20.1 cm. Placenta is posterior, no previa. Fetus is cephalic presentation. ASSESSMENT Intrauterine at 32-6/7. heart rate category one not ruptured, not in labor. PLAN Discharge the patient to home. Keep next scheduled visit on August 26. I did review signs and symptoms of labor, kick counts and danger signs, signs and symptoms of premature rupture of membranes. Reviewed palliative measures for a normal discomforts of related to low back pain. The patient has had all her questions answered and is agreeable to discharge home. I did review access to care. SORAIDA
== END 2018-08-24 21:51 | disposition home or self-care (01) ==
LOC: M LDO 17:58
PROVIDERS: ATTEND Advanced Practice Midwife
DX: O36.8130 Decreased fetal movements, third trimester, not applicable or unspecified (principal); O26.893 Other specified pregnancy related conditions, third trimester; N89.8 Other specified noninflammatory disorders of vagina; O47.03 False labor before 37 completed weeks of gestation, third trimester; Z3A.32 32 weeks gestation of pregnancy

== ENCOUNTER → 2018-08-26 | Outpatient (REF) | payer OTHER ==
[~2018-08-26] MED LIST changes: +LEXA1TAB PO; +MAPA500T2 PO; +UNIS25TA3 PO; +VITAD1000T PO
== END ==
LOC: M LAB REF 17:40
PROVIDERS: ATTEND Advanced Practice Midwife
DX: O09.213 Supervision of pregnancy with history of pre-term labor, third trimester (principal); Z3A.00 Weeks of gestation of pregnancy not specified

== ENCOUNTER → 2018-08-27 | Outpatient (CLI) | payer OTHER ==
[~2018-08-27] MED LIST changes: +OXYC1TAB23 PO
[2018-08-27 11:40] LABS: HEMATOCRIT 35.4 % (36.0-47.0); HEMOGLOBIN 11.6 g/dl (12.0-15.5); MEAN CORPUSCULAR HEMOGLOBIN 28.6 pg (27.0-33.0); MEAN CORPUSCULAR HGB CONC 32.8 g/dl (32.0-36.5); MEAN CORPUSCULAR VOLUME 87.2 fl (80.0-96.0); PLATELET COUNT, AUTOMATED 199 10^3/uL (150-450); RED BLOOD COUNT 4.06 10^6/uL (4.00-5.40); WHITE BLOOD COUNT 9.2 10^3/uL (4.0-10.0)
== END ==
LOC: M LAB 10:46
PROVIDERS: ATTEND Advanced Practice Midwife
DX: O09.212 Supervision of pregnancy with history of pre-term labor, second trimester (principal)

== ENCOUNTER → 2018-08-29 | Outpatient (CLI) | payer OTHER ==
[~2018-08-29] MED LIST changes: -OXYC1TAB23 PO
== END ==
LOC: M LAB 09:06
PROVIDERS: ATTEND Advanced Practice Midwife
DX: O09.212 Supervision of pregnancy with history of pre-term labor, second trimester (principal); Z3A.00 Weeks of gestation of pregnancy not specified

== ENCOUNTER 2018-09-06 19:09 | Outpatient (CLI) | payer OTHER ==
[~2018-09-06] VITALS: Ht 170.2 cm; Wt 111.6 kg
[~2018-09-06 19:09] MED LIST changes: -MAPA500T2 PO
[2018-09-06 19:31] VITALS: BP 113/60
[2018-09-06] MEDS ORDERED: MAPA500T2 PO (19:43)
[2018-09-06] MEDS ORDERED: ZANTTAB PO (19:43)
[2018-09-06] MEDS ORDERED: LACTATED RINGER'S 1000 ML IV STA (19:52)
[2018-09-06 20:09] LABS: HEMOGLOBIN 11.1 g/dl (12.0-15.5); MEAN CORPUSCULAR HEMOGLOBIN 28.6 pg (27.0-33.0); MEAN CORPUSCULAR HGB CONC 32.6 g/dl (32.0-36.5); MEAN CORPUSCULAR VOLUME 87.6 fl (80.0-96.0); PLATELET COUNT, AUTOMATED 191 10^3/uL (150-450); RED BLOOD COUNT 3.88 10^6/uL (4.00-5.40); WHITE BLOOD COUNT 9.1 10^3/uL (4.0-10.0)
[2018-09-06 20:24] LABS: INR 0.93; PROTHROMBIN TIME 12.6 SECONDS (12.1-14.4)
[2018-09-06 20:25] LABS: AMYLASE 44 U/L (25-115); BLOOD UREA NITROGEN 10 MG/DL (7-18); CALCIUM LEVEL 8.4 MG/DL (8.5-10.1); CARBON DIOXIDE LEVEL 23 MEQ/L (21-32); CHLORIDE LEVEL 105 MEQ/L (98-107); CREATININE FOR GFR 0.56 MG/DL (0.55-1.30); GLOMERULAR FILTRATION RATE > 60.0 (>60); GLUCOSE, FASTING 116 MG/DL (70-100); LIPASE 130 U/L (73-393); POTASSIUM SERUM 3.4 MEQ/L (3.5-5.1); SODIUM LEVEL 139 MEQ/L (136-145)
[2018-09-06 21:05] VITALS: BP 109/72
[2018-09-06 21:39] LABS: APPEARANCE, URINE CLEAR (CLEAR); BACTERIA, URINE AUTO NEGATIVE (NEGATIVE); BILIRUBIN, URINE AUTO NEGATIVE (NEGATIVE); BLOOD, URINE BLOOD NEGATIVE (NEGATIVE); COLOR, URINE YELLOW (YELLOW); GLUCOSE, URINE (UA) AUTO NEGATIVE (NEGATIVE); KETONE, URINE AUTO NEGATIVE (NEGATIVE); LEUKOCYTE ESTERASE, URINE AUTO TRACE (NEGATIVE); MUCUS, URINE SMALL (NEGATIVE); NITRITE, URINE AUTO NEGATIVE (NEGATIVE); PROTEIN, URINE AUTO NEGATIVE (NEGATIVE); RBC, URINE AUTO 0 /HPF (0-3); SPECIFIC GRAVITY URINE AUTO 1.029 (1.002-1.035); SQUAMOUS EPITHELIAL CELL UR AU 2 /HPF (0-6); WBC, URINE AUTO 1 /HPF (0-3)
--- NOTE | 2018-09-06 22:05 | NUR ---
L&D Triage Note Reason for visit: labor check Subjective 32 year old at 34+5 weeks gestation. EDC:10/13/18. Complains of pelvic pain/pressure all day today. Denies vaginal bleeding or loss of fluid. Reports regular, frequent movement. course c/b cholestasis (takes Ursodiol), h/o PTB/PPROM x 2, and h/o LTCS x 1 (emergent at 31 weeks for NRFHR) Objective Vitals: normotensive, normal HR, afebrile Heart: Regular rate and rhythm. No murmurs, gallops, rubs Lungs: Clear to auscultation bilaterally. No wheezes, crackles, rales or rhonchi Abdomen: Uterine fundus , nontender and fundal height consistent with gestational age. No guarding or rebound tenderness. Pelvic: SVE: FT/long,thick/high Extremities: nonedematous, nontender. External monitoring/NST:Reactive, normal baseline, moderate variability, no decelerations. Tocodynamometer: contraction pattern not detected Labs: CBC, Coag panel, KB, UA wnl (see [employer]) US,maurer: Cephalic presentation, MVP 6cm. RUQ US earlier today: negative, see [facility] Rad report Assessment/Plan 32 year old at 34+5 weeks gestation. No evidence of active labor, infection, IAI or ruptured membranes. Reassuring maternal and status. -Routine labor, movement/kick count, and obstetric emergency precautions reviewed. -Follow-up with appointment/antepartum testing as currently scheduled. Dr. Umberto Valero, Jade.O., F.A.C.O.G.
== END 2018-09-06 22:02 | disposition home or self-care (01) ==
LOC: M LDO 19:09
PROVIDERS: ATTEND Obstetrics & Gynecology
DX: O26.893 Other specified pregnancy related conditions, third trimester (principal); R10.30 Lower abdominal pain, unspecified; Z3A.34 34 weeks gestation of pregnancy

== ENCOUNTER → 2018-09-07 | Outpatient (CLI) | payer OTHER ==
[~2018-09-07] MED LIST changes: +MAPA500T2 PO; +OXYC1TAB23 PO
--- NOTE | 2018-09-07 16:18 | REP ---
Clinical: Growth evaluation. Comparison: 08/24/2018 . Findings: Examination demonstrates a single live intrauterine in cephalic presentation. motion is identified by technologist. Placenta is noted posterior and grade grade II without evidence for placenta previa or abruption. Amniotic fluid volume is normal. Cervix appears closed. No evidence for nuchal cord. Gestational age by LMP 34 weeks 6 days with PABLO 10/13/2018 . Gestational age by current measurements 36 weeks 0 days with PABLO 10/05/2018 . FHR equals 141 beats per minute. BPD 9.1 cm 36 weeks 6 days HC 32.6 cm 37-week 0 days AC 31.1 cm 35 weeks 1 day FL 7.0 cm 35 weeks 6 days HL 6.1 cm 35 weeks 0 days HC/AC ratio 1.05 Estimated weight 2743 grams ( 62nd percentile). Amniotic fluid index: 19.4 cm (7.9 - 24.9) Umbilical cord SD ratio: 2.83 (2.00 - 3.00). Impression: Single live intrauterine in cephalic presentation demonstrating appropriate interval growth. Amniotic fluid volume is upper limits of normal. No gross abnormalities are identified. Electronically Signed by Faisal Harvey MD 09/07/2018 04:09 P
== END ==
LOC: M RAD 10:45
PROVIDERS: ATTEND Advanced Practice Midwife
DX: O26.613 Liver and biliary tract disorders in pregnancy, third trimester (principal); Z3A.36 36 weeks gestation of pregnancy

== ENCOUNTER 2018-09-11 20:10 | Outpatient (CLI) | payer OTHER ==
[~2018-09-11] VITALS: Ht 167.6 cm; Wt 114.2 kg
[~2018-09-11 20:10] MED LIST changes: -OXYC1TAB23 PO
[2018-09-11 20:29] VITALS: BP 99/49
[2018-09-11 20:31] VITALS: BP 98/55
--- NOTE | 2018-09-11 23:07 | NUR ---
L&D Triage Note: 32yo @ 35w4d presents with c/o ctx . She was discharge this morning following therapeutic rest. Contraction later today. Reports active movement. No vaginal bleeding. O: vss, AF cat 1 with moderate variability and acceleration, no deceleration. FHR 130s. Ctx 5-6mins gen: well appearing abd: gravid, nttp SSE: neg Valsalva, Nitrazine and ferning cx: 2/50/-3, unchanged from this morning A/P: 32yo at 35w4d with PTC reassuring status h/o 1LTCS desiring TOLAC -offered therapeutic rest with morphine and Reglan vs Benadryl. Declined therapeutic rest or further monitoring. Mallika Mike MD
[2018-09-16] MEDS ORDERED: OXYC1TAB23 PO (07:23)
== END 2018-09-11 22:50 | disposition home or self-care (01) ==
LOC: M LDO 20:10
PROVIDERS: ATTEND Obstetrics & Gynecology
DX: O47.03 False labor before 37 completed weeks of gestation, third trimester (principal); Z3A.35 35 weeks gestation of pregnancy

== ENCOUNTER 2018-09-13 15:50 | Outpatient (CLI) | payer OTHER ==
[~2018-09-13] VITALS: Ht 167.6 cm; Wt 114.0 kg
[2018-09-13 16:04] VITALS: BP 110/56
[2018-09-13] MEDS ORDERED: PERCOCET 5MG/325MG TAB PO ONE (17:00)
[2018-09-13 17:02] VITALS: BP 102/59
[2018-09-13 17:43] VITALS: BP 106/57
[2018-09-16] MEDS ORDERED: OXYC1TAB23 PO (07:23)
[2018-09-24] MEDS ORDERED: MAPA500T2 PO (11:40)
[2018-09-24] MEDS ORDERED: IBUP-1114 PO ×2 (11:43)
== END 2018-09-13 17:55 | disposition home or self-care (01) ==
LOC: M LDO 15:50
PROVIDERS: ATTEND Specialist
DX: O26.893 Other specified pregnancy related conditions, third trimester (principal); R10.13 Epigastric pain; O47.03 False labor before 37 completed weeks of gestation, third trimester; Z3A.35 35 weeks gestation of pregnancy

== ENCOUNTER → 2019-03-27 | Outpatient (REF) | payer OTHER ==
[~2019-03-27] MED LIST changes: +ARIP1TAB4 PO; +CHOL100029 PO; +D32000TA PO; +IBUP-1114 PO; +OXYC1TAB23 PO; +VENL37TA PO; -VITAD1000T PO; +ZANT150T40 PO; -ZANTTAB PO
[2019-03-27 15:21] LABS: INFLUENZA A AMPLIFICATION NEGATIVE (NEGATIVE); INFLUENZA B AMPLIFICATION POSITIVE (NEGATIVE)
== END ==
LOC: M LAB REF 14:29
PROVIDERS: ATTEND Physician Assistant Medical
DX: J11.1 Influenza due to unidentified influenza virus with other respiratory manifestations (principal)

== ENCOUNTER 2020-02-10 12:37 | Emergency (ER) | payer OTHER ==
[~2020-02-10] VITALS: Ht 167.6 cm; Wt 87.8 kg
[2020-02-10] MEDS ORDERED: TRAZ-252 (12:50)
[2020-02-10] MEDS ORDERED: NS 1,000 ML IV ONE (13:15)
[2020-02-10 13:53] LABS: BASO # 0.1 10^3/uL (0.0-0.2); BASO % 0.4 % (0.0-1.0); EOS # 0.1 10^3/uL (0.0-0.5); EOS % 0.4 % (0.0-3.0); HEMATOCRIT 45.3 % (36.0-47.0); HEMOGLOBIN 14.3 g/dl (12.0-15.5); LYMPH # 1.4 10^3/uL (1.5-5.0); LYMPH % 10.2 % (24.0-44.0); MEAN CORPUSCULAR HEMOGLOBIN 27.9 pg (27.0-33.0); MEAN CORPUSCULAR HGB CONC 31.6 g/dl (32.0-36.5); MEAN CORPUSCULAR VOLUME 88.5 fl (80.0-96.0); MONO # 0.5 10^3/uL (0.0-0.8); MONO % 3.8 % (0.0-5.0); NEUTROPHILS % 84.6 % (36.0-66.0); PLATELET COUNT, AUTOMATED 228 10^3/uL (150-450); RED BLOOD COUNT 5.12 10^6/uL (4.00-5.40); WHITE BLOOD COUNT 14.1 10^3/uL (4.0-10.0)
[2020-02-10] MEDS ORDERED: ISOVUE-370 76% 100ML VIAL As Ordered ONE (14:01)
[2020-02-10] MEDS ORDERED: ACETAMINOPHEN 500 MG TAB PO ONE (14:15)
[2020-02-10 14:29] LABS: ALBUMIN 4.2 GM/DL (3.2-5.2); ALT/SGPT 18 U/L (12-78); BILIRUBIN,DIRECT 0.2 MG/DL (0.0-0.2); BILIRUBIN,TOTAL 0.7 MG/DL (0.2-1.0); BLOOD UREA NITROGEN 9 MG/DL (7-18); CALCIUM LEVEL 8.9 MG/DL (8.5-10.1); CARBON DIOXIDE LEVEL 28 MEQ/L (21-32); CHLORIDE LEVEL 105 MEQ/L (98-107); CREATININE FOR GFR 0.86 MG/DL (0.55-1.30); GLOMERULAR FILTRATION RATE > 60.0 (>60); GLUCOSE, FASTING 94 MG/DL (70-100); HCG, SERUM QUANTITATIVE < 1.0 MIU/ML; LIPASE 68 U/L (73-393); POTASSIUM SERUM 3.9 MEQ/L (3.5-5.1); SODIUM LEVEL 139 MEQ/L (136-145); TOTAL PROTEIN 7.8 GM/DL (6.4-8.2)
--- NOTE | 2020-02-10 15:34 | REP ---
INDICATION: diffuse abd pain with guarding. COMPARISON: None TECHNIQUE: Axial contrast-enhanced images from the lung bases to the pubic symphysis using 100 cc Isovue 370 intravenous contrast material. Coronal and sagittal reformations obtained.. This CT examination was performed using the following dose reduction techniques: Automated exposure control, adjustment of mA and/or kv according to the patient's size, and the use of iterative reconstruction technique. FINDINGS: Liver, spleen, pancreas, gallbladder, bilateral adrenal glands and kidneys are normal. The enteric system including stomach, small, and large bowel appears relatively normal. No evidence for obstruction or definite acute inflammatory process. However a subtle sigmoid colitis cannot definitively be excluded. Normal terminal ileum and appendix are identified in the right lower quadrant. Pelvis demonstrates normal bladder and age-appropriate uterus/adnexa. No ascites. No free air. No intraperitoneal or retroperitoneal adenopathy. Abdominal aorta and vasculature appear normal. Musculoskeletal structures are intact and without acute osseous abnormality. IMPRESSION: Relatively normal. Subtle sigmoid colitis cannot be excluded and should be correlated clinically. Otherwise normal CT. No ascites, focal inflammatory stranding, free air, or adenopathy. <Electronically signed by Faisal Harvey > 02/10/20 1920
[2020-02-10] MEDS ORDERED: PYRI1TAB5 PO (15:44)
[2020-02-10] MEDS ORDERED: MACR100C43 PO (15:44)
[2020-02-10] MEDS ORDERED: KETOROLAC 30 MG/ML 1ML VIAL IV ONE (15:45)
[2020-02-10 16:00] VITALS: BP 113/55
[2020-02-12] MEDS ORDERED: KEFL500C17 PO (10:39)
== END 2020-02-10 16:30 | disposition home or self-care (01) ==
LOC: M ED 12:37
DX: N39.0 Urinary tract infection, site not specified (principal); D72.829 Elevated white blood cell count, unspecified; F33.9 Major depressive disorder, recurrent, unspecified; F41.9 Anxiety disorder, unspecified; F43.10 Post-traumatic stress disorder, unspecified; Z79.899 Other long term (current) drug therapy; Z88.8 Allergy status to other drugs, medicaments and biological substances; F17.210 Nicotine dependence, cigarettes, uncomplicated
CPT/HCPCS: 74177; 80047; 80048; 80076; 81001; 83605; 83690; 84702; 85025; 87186; 96361; 96374; 99284; J1885; Q9967

== ENCOUNTER → 2020-02-12 | Outpatient (CLI) | payer MEDICAID ==
[~2020-02-12] MED LIST changes: +KEFL500C17 PO; +MACR100C43 PO; +PYRI1TAB5 PO; +TRAZ-252
== END ==
LOC: M OUTALCOH 07:48
PROVIDERS: ATTEND Psychiatry & Neurology Addiction Medicine
DX: F14.20 Cocaine dependence, uncomplicated (principal)

== ENCOUNTER 2020-02-16 11:32 | Outpatient (RCR) | payer MEDICAID | END 2020-02-17 | LOC: M OUTALCOH 11:32 | PROVIDERS: ATTEND Psychiatry & Neurology Addiction Medicine | DX: F14.20 Cocaine dependence, uncomplicated (principal); F12.20 Cannabis dependence, uncomplicated; F10.10 Alcohol abuse, uncomplicated; F17.200 Nicotine dependence, unspecified, uncomplicated ==

== ENCOUNTER → 2020-03-01 | Outpatient (REF) | payer MEDICAID, OTHER | LOC: M SFHCWAGY 13:16 | PROVIDERS: ATTEND Specialist | DX: Z01.419 Encounter for gynecological examination (general) (routine) without abnormal findings (principal); Z12.4 Encounter for screening for malignant neoplasm of cervix ==

== ENCOUNTER 2020-03-13 11:00 | Outpatient (RCR) | payer MEDICAID | END 2020-03-18 | LOC: M OUTALCOH 11:00 | PROVIDERS: ATTEND Psychiatry & Neurology Addiction Medicine | DX: F14.20 Cocaine dependence, uncomplicated (principal); F12.20 Cannabis dependence, uncomplicated; F10.10 Alcohol abuse, uncomplicated; F17.200 Nicotine dependence, unspecified, uncomplicated ==

== ENCOUNTER → 2020-04-18 | Outpatient (RCR) | payer MEDICAID | LOC: M OUTALCOH 03-19 13:35 | PROVIDERS: ATTEND Psychiatry & Neurology Addiction Medicine | DX: F14.20 Cocaine dependence, uncomplicated (principal); F12.20 Cannabis dependence, uncomplicated; F10.10 Alcohol abuse, uncomplicated; F17.200 Nicotine dependence, unspecified, uncomplicated ==

== ENCOUNTER 2020-05-17 14:32 | Outpatient (RCR) | payer MEDICAID | END 2020-05-19 | LOC: M OUTALCOH 14:32 | PROVIDERS: ATTEND Psychiatry & Neurology Psychiatry | DX: F14.20 Cocaine dependence, uncomplicated (principal); F12.20 Cannabis dependence, uncomplicated; F10.10 Alcohol abuse, uncomplicated; F17.200 Nicotine dependence, unspecified, uncomplicated ==

== ENCOUNTER 2020-06-11 19:49 | Observation (INO) | payer MEDICAID, OTHER ==
[~2020-06-11] VITALS: Ht 170.2 cm; Wt 83.2 kg
[2020-06-11] MEDS ORDERED: SERO1TAB3 PO (20:09)
[2020-06-11] MEDS: ALBUTEROL 90 MCG/ACT 8GM HFA INHALER INH SCH (21:26)
[2020-06-11 21:36] LABS: ABG BASE EXCESS 0.3 (-2.0-2.0); ABG HCO3 26.8 MEQ/L (22.0-26.0); ABG O2 SATURATION 72.2 % (95.0-99.0); ABG PARTIAL PRESSURE CO2 50.3 mmHg (35.0-45.0); ABG STANDARD HCO3 24.2 MEQ/L (22.0-26.0); ABG TOTAL CO2 28.3 MEQ/L (22.0-29.0); ABG pH (ARTERIAL) 7.344 UNITS (7.350-7.450)
[2020-06-11 21:51] LABS: ABG PARTIAL PRESSURE O2 40.7 mmHg (75.0-100.0)
[2020-06-11 22:01] LABS: BASO % 0.3 % (0.0-1.0); EOS # 0.1 10^3/uL (0.0-0.5); EOS % 0.4 % (0.0-3.0); HEMATOCRIT 44.3 % (36.0-47.0); HEMOGLOBIN 13.8 g/dl (12.0-15.5); LYMPH % 15.2 % (24.0-44.0); MEAN CORPUSCULAR HEMOGLOBIN 27.3 pg (27.0-33.0); MEAN CORPUSCULAR HGB CONC 31.2 g/dl (32.0-36.5); MEAN CORPUSCULAR VOLUME 87.7 fl (80.0-96.0); MONO # 0.5 10^3/uL (0.0-0.8); MONO % 3.6 % (2.0-8.0); NEUTROPHILS # 10.3 10^3/uL (1.5-8.5); NEUTROPHILS % 79.8 % (36.0-66.0); PLATELET COUNT, AUTOMATED 202 10^3/uL (150-450); RED BLOOD COUNT 5.05 10^6/uL (4.00-5.40); WHITE BLOOD COUNT 12.9 10^3/uL (4.0-10.0)
[2020-06-11 22:11] LABS: INR 0.93; PROTHROMBIN TIME 12.7 SECONDS (12.5-14.3)
[2020-06-11 22:14] LABS: D-DIMER QUANT 452.25 ng/ml (<500)
[2020-06-11 22:34] LABS: ALBUMIN 3.8 GM/DL (3.2-5.2); ALT/SGPT 23 U/L (12-78); BILIRUBIN,DIRECT 0.2 MG/DL (0.0-0.2); BILIRUBIN,TOTAL 0.5 MG/DL (0.2-1.0); BLOOD UREA NITROGEN 17 MG/DL (7-18); CALCIUM LEVEL 9.4 MG/DL (8.5-10.1); CARBON DIOXIDE LEVEL 31 MEQ/L (21-32); CHLORIDE LEVEL 104 MEQ/L (98-107); CREATININE FOR GFR 0.81 MG/DL (0.55-1.30); GLOMERULAR FILTRATION RATE > 60.0 (>60); GLUCOSE, FASTING 89 MG/DL (70-100); HCG, SERUM QUALITATIVE NEGATIVE (NEGATIVE); POTASSIUM SERUM 3.7 MEQ/L (3.5-5.1); SODIUM LEVEL 141 MEQ/L (136-145); TOTAL PROTEIN 7.2 GM/DL (6.4-8.2)
[2020-06-11] MEDS ORDERED: ACETAMINOPHEN TAB 650MG DOSE (2X325MG) PO PRN (23:15)
[2020-06-11] MEDS ORDERED: MAALOX 30 ML SUSP *UDC PO PRN (23:15)
[2020-06-11] MEDS ORDERED: MOM 30ML SUSPENSION UDC PO PRN (23:15)
--- NOTE | 2020-06-11 23:28 | HPEPDOC ---
[facility] Medical History & Physical Date of Admission Jun 11, 2020 Date of Service: Jun 11, 2020 Attending Physician: JEANETTE JAMES MD History and Physical TIME OF SERVICE: 1155PM CHIEF COMPLAINT: dyspnea HISTORY OF PRESENT ILLNESS: This 34 yr old F developed shortness of breath on Jun 09 associated with coughing, fever, headaches, muscle aches and diarrhea. She denies vomiting, noticing that food tastes flat or having any rashes on her body. She was diagnosed with COVID 19 today and per d/w GAS SUBSTATION OPERATOR Lorenzo the patients O2 sats dropped to the 80s and she became tachypneic when they tried to get the patient to walk; he was of the opinion that the ABG results were inaccurate because the sample was from venous blood. REVIEW OF SYSTEMS: 12-point review of systems negative except as listed in HPI PAST MEDICAL/ SURGICAL HISTORY: Bipolar disorder [id number] SOCIAL HISTORY: She smokes FAMILY HISTORY: HTN, cancer, anxiety, depression, muscular dystrophy and autism ALLERGIES: Please see below. HOME MEDICATIONS: Please see below. PHYSICAL EXAMINATION: Vital Signs Date Time Temp Pulse Resp B/P (MAP) Pulse Ox O2 Delivery O2 Flow Rate FiO2 06/11/20 19:51 98.1 77 20 107/55 (72) 98 Room Air 06/11/20 21:49 97 GENERAL APPEARANCE: well nourished / well developed/ anxious HEENT: EOMI / lower face covered with mask CARDIOVASCULAR: RRR/NMRG / coughing LUNGS: CTAB on RA MUSCULOSKELETAL: PEREZ x 4 INTEGUMENT: not flushed /no generalized pallor NEUROLOGICAL: CN 2-12 intact / speech not dysarthric PSYCHIATRIC: A&Ox 3 /able to understand and follow all commands LABORATORY DATA: Laboratory Tests 06/11/20 21:29 Blood Gas Bicarbonate Standard 24.2, Arterial Blood pH 7.344L, Arterial Blood Partial Pressure CO2 50.3H, Arterial Blood Partial Pressure O2 40.7*L, Arterial Blood Total CO2 28.3, Arterial Blood HCO3 26.8H, Arterial Blood Base Excess 0.3, Arterial Blood Oxygen Saturation 72.2L 06/11/20 21:29: Immature Granulocyte % (Auto) 0.7, Neutrophils (%) (Auto) 79.8H, Lymphocytes (%) (Auto) 15.2L, Monocytes (%) (Auto) 3.6, Eosinophils (%) (Auto) 0.4, Basophils (%) (Auto) 0.3, Neutrophils # (Auto) 10.3H, Lymphocytes # (Auto) 2.0, Monocytes # (Auto) 0.5, Eosinophils # (Auto) 0.1, Basophils # (Auto) 0.0, Nucleated Red Blood Cells % (auto) 0.0, Prothrombin Time 12.7, Prothromb Time International Ratio 0.93, Fibrinogen 522H, D-Dimer, Quantitative 452.25, Anion Gap 6L, Glomerular Filtration Rate > 60.0, Calcium Level 9.4, Total Bilirubin 0.5, Direct Bilirubin 0.2, Aspartate Amino Transf (AST/SGOT) 14, Alanine Ami notransferase (ALT/SGPT) 23, Alkaline Phosphatase 57, Total Protein 7.2, Albumin 3.8, Albumin/Globulin Ratio 1.1L, Human Chorionic Gonadotropin, Qual NEGATIVE 06/11/20 21:30: Lactic Acid Level 1.7 IMAGING: Chest xray IMPRESSION: Diffuse bilateral infiltrates. Consistent with pulmonary edema versus pneumonia. MICROBIOLOGY: COVID-19 + 06/11/20 Blood Culture, Received Pending 06/11/20 Blood Culture, Received Pending 06/11/20 Respiratory Virus Panel (PCR) (FABIO) - Final, Complete SARS-CoV-2 (COVID 19) ASSESSMENT: is a 34 yr old w a hx of bipolar disorder who presented w c/o coughing, fever, headaches, muscle aches and diarrhea and will be admitted for management of COVID 19 PNA. PLAN: 1 Bilateral COVID 19 PNA Plan: admit to medical floor under observation / continuous pulse ox / supplemental O2 up to 3L with target O2 sats between 92-95% / contact & air borne precautions / f/u fibrinogen, INR, D-dimer, PT, PTT (if patient has DIC indicates bad prognosis), troponins (if elevated will need Echo to r/o viral cardiomyopathy) / pending documentation of hypoxemia I will not start Remdesivir or Steroids / will start Doxcycline 100mg BID for PNA (will avoid Levofloxacin bc her psych meds can also prolong the QTc) / because she doesnt have SIRS criteria I will not order procalcitonin, sputum cx, strep pneumo, legionella & mycoplasma, MRSA & will cancel the blood cx 2 Tobacco Abuse Plan: nicotine patch and smoking cessation education 3 Bipolar Disorder Plan: Quetiapine, Venlafaxine, Trazodone Lovenox and ASA for DVT Px Dispo: home after less than 2 midnights stay Home Medications Scheduled Cholecalciferol (Vitamin D3) (Vitamin D3) 50 Mcg Tablet, 50 MCG PO DAILY Oxybutynin Chloride (Oxybutynin Chloride ER) 10 Mg Tab.er.24, 10 MG PO DAILY Quetiapine Fumarate (Quetiapine Fumarate) 25 Mg Tablet, 25 MG PO QHS Venlafaxine HCl (Venlafaxine HCl ER) 75 Mg Cap.er.24h, 75 MG PO DAILY Scheduled PRN Trazodone HCl (Trazodone HCl) 50 Mg Tablet, 50 MG PO QHS PRN for INSOMNIA Allergies Coded Allergies: lamotrigine (Verified Allergy, Severe, FACE SWELLS, RASH, 02/10/20) prochlorperazine (Verified Allergy, Severe, TONGUE SWELLED, LOCK-JAW, 02/10/20) A-FIB/CHADSVASC A-FIB History Current/History of A-Fib/PAF?: No Current PO Anticoag Therapy: JEANETTE Causey MD Jun 11, 2020 23:28
--- NOTE | 2020-06-11 23:28 | REPVR ---
PROCEDURE INFORMATION: Exam: XR Chest, 1 View Exam date and time: 06/11/2020 11:02 PM Age: 34 years old Clinical indication: Cough and dyspnea; Additional info: Dyspnea/cough TECHNIQUE: Imaging protocol: XR of the chest Views: 1 view. COMPARISON: [place] Chest, 2 view PA, Lat 07/16/2017 9:36 AM FINDINGS: Lungs: Diffuse bilateral infiltrates. Pleural spaces: Unremarkable. No pleural effusion. No pneumothorax. Heart/Mediastinum: Unremarkable. No cardiomegaly. Bones/joints: Unremarkable. IMPRESSION: Diffuse bilateral infiltrates. Consistent with pulmonary edema versus pneumonia. Electronically signed by: iTm Callahan On 06/11/2020 23:28:35 PM
[2020-06-11 23:33] LABS: CPK CREATINE PHOSPHOKINASE 53 U/L (26-192); FERRITIN 90 NG/ML (8-252); LDH LACTATE DEHYDROGENASE 270 U/L (84-246); MAGNESIUM LEVEL 2.2 MG/DL (1.8-2.4); NT-PRO BNP 222 PG/ML (<125); TROPONIN I < 0.02 NG/ML (< 0.10)
[2020-06-11] MEDS ORDERED: QUET25TA3 PO (23:41)
[2020-06-11] MEDS ORDERED: VENL75CA47 PO (23:41)
[2020-06-11] MEDS ORDERED: OXYB10TA23 PO (23:41)
[2020-06-11] MEDS ORDERED: TRAZ1TAB10 PO (23:41)
[2020-06-11] MEDS ORDERED: D32000TA PO (23:41)
[2020-06-12] MEDS ORDERED: QUEtiapine FUMARATE 25 MG TAB PO SCH (00:45)
[2020-06-12] MEDS ORDERED: traZODone 50 MG TAB PO PRN (00:45)
[2020-06-12 01:14] VITALS: BP 104/54
[2020-06-12 01:23] VITALS: O2SAT 98
[2020-06-12] MEDS ORDERED: LevoFLOXacin 500 MG TABLET PO SCH (03:00)
[2020-06-12] MEDS ORDERED: DOXYCYCLINE HYCLATE 100MG TABLET PO SCH (03:00)
[2020-06-12 04:00] VITALS: O2SAT 98
[2020-06-12 06:05] VITALS: BP 92/58
[2020-06-12] MEDS ORDERED: SODIUM CHLORIDE 0.9% 1000ML IV ONE (06:30)
[2020-06-12 07:03] LABS: BASO % 0.4 % (0.0-1.0); EOS # 0.1 10^3/uL (0.0-0.5); EOS % 1.8 % (0.0-3.0); HEMATOCRIT 36.5 % (36.0-47.0); LYMPH # 2.4 10^3/uL (1.5-5.0); LYMPH % 31.1 % (24.0-44.0); MEAN CORPUSCULAR HEMOGLOBIN 28.1 pg (27.0-33.0); MEAN CORPUSCULAR HGB CONC 32.1 g/dl (32.0-36.5); MEAN CORPUSCULAR VOLUME 87.7 fl (80.0-96.0); MONO # 0.4 10^3/uL (0.0-0.8); MONO % 5.2 % (2.0-8.0); NEUTROPHILS # 4.7 10^3/uL (1.5-8.5); PLATELET COUNT, AUTOMATED 167 10^3/uL (150-450); RED BLOOD COUNT 4.16 10^6/uL (4.00-5.40); WHITE BLOOD COUNT 7.7 10^3/uL (4.0-10.0)
[2020-06-12 07:05] LABS: HEMOGLOBIN 11.7 g/dl (12.0-15.5)
[2020-06-12 07:18] LABS: BLOOD UREA NITROGEN 13 MG/DL (7-18); CALCIUM LEVEL 8.5 MG/DL (8.5-10.1); CARBON DIOXIDE LEVEL 27 MEQ/L (21-32); CHLORIDE LEVEL 107 MEQ/L (98-107); CREATININE FOR GFR 0.74 MG/DL (0.55-1.30); GLOMERULAR FILTRATION RATE > 60.0 (>60); GLUCOSE, FASTING 89 MG/DL (70-100); POTASSIUM SERUM 3.2 MEQ/L (3.5-5.1); SODIUM LEVEL 140 MEQ/L (136-145)
--- NOTE | 2020-06-12 07:44 | ECGEPIP ---
[facility] - ED Test Date: 2020-06-11 Pat Name: LIVE SPEARS Department: Room: - Gender: Female Sales Representative Supervisor: FAUSTINA : [id number] Requested By: BEVERLEY RAMOS Order Number: [id number] Reading MD: Sha James Measurements Intervals [place] Rate: 75 P: 61 ME: 140 QRS: 61 QRSD: 74 T: 48 QT: 394 QTc: 439 Interpretive Statements Normal sinus rhythm Baseline artifact Electronically Signed on 06-12-2020 7:44:32 EST by Sha James
[2020-06-12] MEDS ORDERED: ENOXAPARIN 40MG/0.4ML SYRINGE (J1650 PER 10MG) SC SCH (09:00)
[2020-06-12] MEDS ORDERED: oxyBUTYnin *DITROPAN XL* 5 MG TABCR PO SCH (09:00)
[2020-06-12] MEDS ORDERED: ASPIRIN 81 MG ENTERIC TAB PO SCH (09:00)
[2020-06-12] MEDS ORDERED: NICOTINE 14 MG/24 HR TRANSDERMAL TD SCH (09:00)
[2020-06-12] MEDS ORDERED: VENLAFAXINE **XR** 75MG CAPSULE PO SCH (09:00)
[2020-06-12 09:16] VITALS: O2SAT 98
[2020-06-12] MEDS ORDERED: NS 1,000 ML IV SCH (09:45)
[2020-06-12] MEDS ORDERED: POTASSIUM CHLORIDE 10 MEQ SR TABLET PO ONE (10:00)
[2020-06-12 10:33] LABS: NT-PRO BNP 126 PG/ML (<125)
[2020-06-12] MEDS ORDERED: ONDANSETRON 4MG/2ML VIAL IV PRN (11:35)
[2020-06-12] MEDS ORDERED: NS 500 ML IV ONE (14:00)
[2020-06-12 14:14] VITALS: BP 91/52
[2020-06-12] MEDS ORDERED: ASPI-569 PO (16:04)
[2020-06-12] MEDS ORDERED: CEFD300CAP PO (16:04)
[2020-06-12] MEDS ORDERED: DOXY100T PO (16:04)
--- NOTE | 2020-06-12 16:37 | DS.PDOC ---
Discharge Summary General Date of Admission Jun 11, 2020 at 19:50 Date of Discharge 06/12/2020 Discharge Summary PROCEDURES PERFORMED DURING STAY: [None]. ADMITTING DIAGNOSES / DISCHARGE DIAGNOSES: COVID19 pneumonia Hypotension Hypokalemia s/p Leukocytosis Normocytic anemia Tobacco Abuse Bipolar Disorder DVT prophylaxis COMPLICATIONS/CHIEF COMPLAINT: Shortness of breath / Cough HISTORY OF PRESENT ILLNESS: Patient is a 34-year-old female with past medical history of bipolar disorder who presented to the emergency room with complaints of coughing, fever, headache, body aches and diarrhea. Patient was allegedly noted to have saturations dropping to the 80s with ambulation. Patient was admitted to the hospital service for further evaluation and treatment. This morning patient was seen and evaluated the bedside. She has worked with physical therapy without any supplemental oxygen. Her oxygen levels have maintained 98% without any supplemental oxygen. She has been cleared from phys ical therapy standpoint, she reports that she still experiences a mild cough. No significant short of breath, has not spent any chest pain or palpitations. No nausea, vomiting, abdominal pain or constipation. Reports some loose bowel movements. HOSPITAL COURSE: COVID19 pneumonia - Presented with shortness of breath and cough - Currently saturating well on room air, and ambulatory pulse ox did not show any desaturations - Inflammatory markers noted - COVID19 positive on 06/07/20 - Imaging noted below - c/w Doxycycline (Day #1) will add Cefdinir; will continue antibiotic therapy as an outpatient - Procalcitonin noted - c/w incentive spirometry / acapella / Mucinex - Will have outpatient follow-up with primary care provider within the next 7 days Hypotension - Review the medical record indicates the patient's blood pressure has run chronically low since 2017 - Currently no lactic acidosis - Patient has worked with PT and has been cleared for DC Hypokalemia - Will supplement s/p Leukocytosis Normocytic anemia - Hg likely lower 2/2 dilutional etiology - No evidence of bleeding Tobacco Abuse - Advised smoking cessation - Continue with nicotine patch Bipolar Disorder - c/w Quetiapine, Venlafaxine, Trazodone DVT prophylaxis - c/w Lovenox and ASA DISCHARGE MEDICATIONS: Please see below. ALLERGIES: Please see below. PHYSICAL EXAMINATION ON DISCHARGE: Vitals (See below) General: Sitting up in bed, has been ambulating throughout the room has worked with physical therapy, appears comfortable, AAOx3 HEENT: NC, AT CVS: RRR, +S1S2 Lungs: Fair air entry b/l, no appreciable wheezing, rhonchi or rales Abdomen: Soft, ND, NT Extremities: - Edema, - Calf tenderness LABORATORY DATA: Please see below. IMAGING: CXR 06/11: Diffuse bilateral infiltrates. Consistent with pulmonary edema versus pneumonia. ACTIVITY: [As tolerated]. DISCHARGE PLAN: Follow-up with primary care provider within the next 7 days Remain compliant with treatment plan and medications Return to the ER if you experience any problems DISPOSITION: Home with services DISCHARGE CONDITION: [Stable]. TIME SPENT ON DISCHARGE: 20 minutes. Vital Signs/I&Os Vital Signs Date Time Temp Pulse Resp B/P (MAP) Pulse Ox O2 Delivery O2 Flow Rate FiO2 06/12/20 14:14 98.4 71 17 91/52 (65) 99 Room Air 06/12/20 07:30 98 l I&O- Last 24 Hours up to 6 AM 06/12/20 06:00 Intake Total 240 ml Balance 240 ml Laboratory Data Labs 24H Laboratory Tests 2 06/11/20 21:08: Blood Gas Bicarbonate Standard 24.2, Arterial Blood pH 7.344L, Arterial Blood Partial Pressure CO2 50.3H, Arterial Blood Partial Pressure O2 40.7*L, Arterial Blood Total CO2 28.3, Arterial Blood HCO3 26.8H, Arterial Blood Base Excess 0.3, Arterial Blood Oxygen Saturation 72.2L 06/11/20 21:29: Immature Granulocyte % (Auto) 0.7, Neutrophils (%) (Auto) 79.8H, Lymphocytes (%) (Auto) 15.2L, Monocytes (%) (Auto) 3.6, Eosinophils (%) (Auto) 0.4, Basophils (%) (Auto) 0.3, Neutrophils # (Auto) 10.3H, Lymphocytes # (Auto) 2.0, Monocytes # (Auto) 0.5, Eosinophils # (Auto) 0.1, Basophils # (Auto) 0.0, Nucleated Red Blood Cells % (auto) 0.0, Prothrombin Time 12.7, Prothromb Time International Ratio 0.93, Fibrinogen 522H, D-Dimer, Quantitative 452.25, Anion Gap 6L, Glomerular Filtration Rate > 60.0, Calcium Level 9.4, Magnesium Level 2.2, Ferritin 90, Total Bilirubin 0.5, Direct Bilirubin 0.2, Aspartate Amino Transf (AST/SGOT) 14, Alanine Aminotransferase (ALT/SGPT) 23, Alkaline Phosphatase 57, Lactate Dehydrogenase 270H, Total Creatine Kinase 53, Troponin I < 0.02, C- Reactive Protein, Quantitative 10.50H, KF-Gac-E-Type Natriuretic Peptide 222H, Total Protein 7.2, Albumin 3.8, Albumin/Globulin Ratio 1.1L, Human Chorionic Gonadotropin, Qual NEGATIVE 06/11/20 21:30: Lactic Acid Level 1.7 06/12/20 06:28: Immature Granulocyte % (Auto) 0.5, Neutrophils (%) (Auto) 61.0, Lymphocytes (%) (Auto) 31.1, Monocytes (%) (Auto) 5.2, Eosinophils (%) (Auto) 1.8, Basophils (%) (Auto) 0.4, Neutrophils # (Auto) 4.7, Lymphocytes # (Auto) 2.4, Monocytes # (Auto) 0.4, Eosinophils # (Auto) 0.1, Basophils # (Auto) 0.0, Nucleated Red Blood Cells % (auto) 0.0, Anion Gap 6L, Glomerular Filtration Rate > 60.0, Calcium Level 8.5, Magnesium Level 2.0, ZV-[id number]-N-Type Natriuretic Peptide 126H 06/12/20 07:56: Procalcitonin 4.42 06/12/20 10:29: Lactic Acid Level 1.4 CBC/BMP Laboratory Tests 06/11/20 21:29 06/12/20 06:28 Microbiology Microbiology 06/11/20 Blood Culture, Received Pending 06/11/20 Blood Culture, Received Pending 06/11/20 Respiratory Virus Panel (PCR) (FABIO) - Final, Complete SARS-CoV-2 (COVID 19) Discharge Medications Scheduled Aspirin (Aspirin EC) 81 Mg Tablet.dr, 81 MG PO DAILY Cefdinir (Cefdinir) 300 Mg Capsule, 1 CAP PO BID Cholecalciferol (Vitamin D3) (Vitamin D3) 50 Mcg Tablet, 50 MCG PO DAILY, (Reported) Doxycycline Hyclate (Doxycycline Hyclate) 100 Mg Tablet, 100 MG PO BID Oxybutynin Chloride (Oxybutynin Chloride ER) 10 Mg Tab.er.24, 10 MG PO DAILY, (Reported) Quetiapine Fumarate (Quetiapine Fumarate) 25 Mg Tablet, 25 MG PO QHS, (Reported) Venlafaxine HCl (Venlafaxine HCl ER) 75 Mg Cap.er.24h, 75 MG PO DAILY, (Reported) Scheduled PRN Trazodone HCl (Trazodone HCl) 50 Mg Tablet, 50 MG PO QHS PRN for INSOMNIA, (Reported) Allergies Coded Allergies: lamotrigine (Verified Allergy, Severe, FACE SWELLS, RASH, 02/10/20) prochlorperazine (Verified Allergy, Severe, TONGUE SWELLED, LOCK-JAW, 02/10/20) JACK NELSON MD Jun 12, 2020 16:37
[2020-06-12] MEDS ORDERED: MUCI600T31 PO (18:01)
== END 2020-06-12 18:50 | disposition home or self-care (01) ==
LOC: M ED 19:49 → M ED INP 19:50 → ENRESERV 23:49 → M 4MAIN 06-12 00:59
PROVIDERS: ADMIT Internal Medicine; ATTEND Internal Medicine
DX: U07.1 COVID-19 (principal); J12.82 Pneumonia due to coronavirus disease 2019; I95.9 Hypotension, unspecified; E87.6 Hypokalemia; D72.829 Elevated white blood cell count, unspecified; D50.0 Iron deficiency anemia secondary to blood loss (chronic); F17.218 Nicotine dependence, cigarettes, with other nicotine-induced disorders; F31.9 Bipolar disorder, unspecified; Z79.82 Long term (current) use of aspirin; Z79.899 Other long term (current) drug therapy; Z88.8 Allergy status to other drugs, medicaments and biological substances
CPT/HCPCS: 36415; 36600; 71045; 80048; 80076; 82550; 82728; 82803; 83605; 83615; 83735; 83880; 84145; 84703; 85025; 85379; 85384; 85610; 86140; 87040; 87798; 93005; 94640; 96372; 96374; 96375; 97161; 97530; 99284; J1650; J2405

== ENCOUNTER 2020-07-04 20:06 | Emergency (ER) | payer OTHER ==
[~2020-07-04] VITALS: Ht 170.2 cm; Wt 86.1 kg
[~2020-07-04 20:06] MED LIST changes: +ASPI-569 PO; +CEFD300CAP PO; +DOXY100T PO; +MUCI600T31 PO; +OXYB10TA23 PO; +QUET25TA3 PO; +SERO1TAB3 PO; +TRAZ1TAB10 PO; +VENL75CA47 PO
[2020-07-04] MEDS ORDERED: ACETAMINOPHEN 500 MG TAB PO ONE (20:55)
[2020-07-04 21:48] LABS: BASO # 0.1 10^3/uL (0.0-0.2); BASO % 0.7 % (0.0-1.0); EOS # 0.2 10^3/uL (0.0-0.5); EOS % 1.6 % (0.0-3.0); HEMATOCRIT 42.7 % (36.0-47.0); HEMOGLOBIN 13.6 g/dl (12.0-15.5); LYMPH # 2.2 10^3/uL (1.5-5.0); LYMPH % 21.1 % (24.0-44.0); MEAN CORPUSCULAR HEMOGLOBIN 28.3 pg (27.0-33.0); MEAN CORPUSCULAR HGB CONC 31.9 g/dl (32.0-36.5); MONO # 0.5 10^3/uL (0.0-0.8); MONO % 4.8 % (2.0-8.0); NEUTROPHILS # 7.3 10^3/uL (1.5-8.5); NEUTROPHILS % 71.1 % (36.0-66.0); PLATELET COUNT, AUTOMATED 260 10^3/uL (150-450); WHITE BLOOD COUNT 10.3 10^3/uL (4.0-10.0)
[2020-07-04 21:58] LABS: INR 0.91; PROTHROMBIN TIME 12.4 SECONDS (12.5-14.3)
[2020-07-04 21:59] LABS: PARTIAL THROMBOPLASTIN TIME 31.4 SECONDS (24.2-38.5)
[2020-07-04] MEDS ORDERED: LIDO2.5C15 TOP (22:26)
[2020-07-04] MEDS ORDERED: COLA100C5 PO (22:26)
[2020-07-04 22:39] VITALS: BP 116/61
== END 2020-07-04 22:48 | disposition home or self-care (01) ==
LOC: M ED 20:06
DX: K62.89 Other specified diseases of anus and rectum (principal); R19.5 Other fecal abnormalities; K64.8 Other hemorrhoids; F31.9 Bipolar disorder, unspecified; F43.10 Post-traumatic stress disorder, unspecified; Z86.16 Personal history of COVID-19; Z79.899 Other long term (current) drug therapy; Z88.8 Allergy status to other drugs, medicaments and biological substances; F17.210 Nicotine dependence, cigarettes, uncomplicated

== ENCOUNTER → 2020-10-30 | Outpatient (REF) | payer OTHER ==
[~2020-10-30] MED LIST changes: +COLA100C5 PO; +LIDO1CRE42 TOP
== END ==
LOC: M LAB REF 22:11
PROVIDERS: ATTEND Physician Assistant Medical
DX: J02.9 Acute pharyngitis, unspecified (principal)

== ENCOUNTER 2021-01-07 13:25 | Inpatient (IN) | payer MEDICAID, OTHER ==
[~2021-01-07] VITALS: Ht 170.2 cm; Wt 75.3 kg
[~2021-01-07 13:25] MED LIST changes: +QUET1TAB17 PO; -QUET25TA3 PO
[2021-01-07 14:51] LABS: HEMATOCRIT 41.8 % (36.0-47.0); HEMOGLOBIN 13.3 g/dl (12.0-15.5); MEAN CORPUSCULAR HEMOGLOBIN 28.2 pg (27.0-33.0); MEAN CORPUSCULAR HGB CONC 31.8 g/dl (32.0-36.5); MEAN CORPUSCULAR VOLUME 88.6 fl (80.0-96.0); PLATELET COUNT, AUTOMATED 179 10^3/uL (150-450); RED BLOOD COUNT 4.72 10^6/uL (4.00-5.40); WHITE BLOOD COUNT 6.5 10^3/uL (4.0-10.0)
[2021-01-07 15:13] LABS: HCG, SERUM QUALITATIVE NEGATIVE (NEGATIVE)
[2021-01-07 15:27] LABS: ACETAMINOPHEN LEVEL < 2.0 UG/ML (10.0-30.0); ALBUMIN 3.1 GM/DL (3.2-5.2); ALT/SGPT 19 U/L (12-78); BILIRUBIN,DIRECT < 0.1 MG/DL (0.0-0.2); BILIRUBIN,TOTAL 0.3 MG/DL (0.2-1.0); BLOOD UREA NITROGEN 11 MG/DL (7-18); CALCIUM LEVEL 8.6 MG/DL (8.5-10.1); CARBON DIOXIDE LEVEL 29 MEQ/L (21-32); CHLORIDE LEVEL 108 MEQ/L (98-107); CREATININE FOR GFR 0.82 MG/DL (0.55-1.30); ETHYL ALCOHOL (ETHANOL) < 0.003 % (0.000-0.010); GLOMERULAR FILTRATION RATE > 60.0 (>60); GLUCOSE, FASTING 93 MG/DL (70-100); POTASSIUM SERUM 3.5 MEQ/L (3.5-5.1); SALICYLATE LEVEL < 1.7 MG/DL (5.0-30.0); SODIUM LEVEL 143 MEQ/L (136-145); THYROID STIMULATING HORMONE 0.578 uIU/ML (0.358-3.740)
[2021-01-07 17:13] LABS: AMPHETAMINES LEVEL URINE NEGATIVE (NEGATIVE); BARBITURATES URINE NEGATIVE (NEGATIVE); BENZODIAZEPINES URINE NEGATIVE (NEGATIVE); CANNABINOIDS URINE NEGATIVE (NEGATIVE); COCAINE METABOLITE URINE POSITIVE (NEGATIVE); METHADONE URINE NEGATIVE (NEGATIVE); OPIATES URINE NEGATIVE (NEGATIVE); PHENCYCLIDINE URINE NEGATIVE (NEGATIVE)
[2021-01-07 18:38] LABS: RSV AMPLIFICATION NEGATIVE (NEGATIVE)
[2021-01-07] MEDS ORDERED: ACETAMINOPHEN 325 MG TAB PO ONE (18:45)
[2021-01-07] MEDS ORDERED: HOME MED LIST COMPLETE! XX SCH (19:45)
[2021-01-07] MEDS ORDERED: LORazepam 2 MG TAB PO PRN ×2 (20:40→21:25)
[2021-01-07] MEDS ORDERED: MOM 30ML SUSPENSION UDC PO PRN ×2 (20:40→21:25)
[2021-01-07] MEDS ORDERED: traZODone 50 MG TAB PO PRN (20:40)
[2021-01-07] MEDS ORDERED: ACETAMINOPHEN TAB 650MG DOSE (2X325MG) PO PRN (20:40)
[2021-01-07] MEDS ORDERED: MAALOX 30 ML SUSP *UDC PO PRN ×2 (20:40→21:25)
[2021-01-07] MEDS ORDERED: OLANZapine ORAL DISINTEGRATING TAB 5MG PO PRN (20:40)
[2021-01-07] MEDS: THIAMINE 100 MG TAB PO SCH (21:00)
[2021-01-07] MEDS ORDERED: THIAMINE 100 MG TAB PO SCH (21:00)
[2021-01-08] MEDS: OLANZapine ORAL DISINTEGRATING TAB 5MG PO PRN (03:49)
[2021-01-08] MEDS: traZODone 50 MG TAB PO PRN (03:49)
[2021-01-08 04:02] VITALS: BP 121/71
[2021-01-08 04:46] VITALS: BP 121/71
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
[2021-01-08] MEDS: THIAMINE 100 MG TAB PO SCH ×2 (09:00→21:20)
[2021-01-08] MEDS: FOLIC ACID 1 MG TAB PO SCH (09:00)
[2021-01-08] MEDS ORDERED: MULTIVITAMINS/MINERALS THERAP 1 TAB PO SCH (09:00)
[2021-01-08] MEDS ORDERED: FOLIC ACID 1 MG TAB PO SCH (09:00)
[2021-01-08] MEDS: MULTIVITAMINS/MINERALS THERAP 1 TAB PO SCH (09:00)
[2021-01-08] MEDS: OXcarbazepine 150 MG TAB PO SCH ×2 (09:43→21:20)
--- NOTE | 2021-01-08 14:05 | HPEPDOC ---
General Date of Admission Jan 07, 2021 at 20:36 Date of Service: Jan 08, 2021 Chief Complaint The patient is a 35-year-old female admitted with a reason for visit of Unspecified Depressive Use Do & Cocaine Use Do. Source: Patient History of Present Illness 35 year old female with PMH of bipolar disorder, substance abuse has been admitted to inpatient mental health unit for unspecified depressive disorder with suicidal ideation. She is being examined here for medical history and physical. She complains of crampy abdominal pain after she took MOM early this morning for constipation. She reports that she did not have any bowel movements for 2 days. She also complains a swelling of the left tragus top partfor the past 2 weeks with tenderness. She denied any trauma or piercing in the tragus. Home Medications No Active Prescriptions or Reported Meds Allergies Coded Allergies: lamotrigine (Verified Allergy, Severe, FACE SWELLS, RASH, 02/10/20) prochlorperazine (Verified Allergy, Severe, TONGUE SWELLED, LOCK-JAW, 02/10/20) Past Medical History Medical History COVID -19 infection in May 2020. Bipolar disorder Substance abuse : cocaine, cannabis, alcohol PTSD Panic attacks Family History HTN, cancer, anxiety, depression, muscular dystrophy and autism Social History * Smoker: current smoker Alcohol: occationally Drugs: cocaine A-FIB/CHADSVASC A-FIB History Current/History of A-Fib/PAF?: No Review of Systems Constitutional: Denies: Chills, Fever, Night Sweats Eyes: Denies: Pain, Vision change ENT: Reports: Ear Pain; Denies: Head Aches, Dysphagia Skin: Denies: Rash, Lesions, Breakdown Pulmonary: Denies: Dyspnea, Cough Cardiovascular: Denies: Chest Pain, Palpitations, Orthopnea, Paroxysmal Noc. Dyspnea, Lt Headedness Gastrointestinal: Reports: Abdominal Pain; Denies: Nausea, Vomiting, Diarrhea Genitourinary: Denies: Dysuria, Frequency, Incontinence, Retention Musculoskeletal: Denies: Neck Pain, Back Pain, Joint Pain, Muscle Pain, Spasms Physical Examination General Exam: Positive: Alert, Cooperative, No Acute Distress Eye Exam: Positive: PERRLA, Conjunctiva & lids normal, EOMI; Negative: Sclera icteric ENT Exam: Positive: Atraumatic, Mucous membr. moist/pink, Pharynx Normal, Other ENT (Swelling of the pinna at the top. ) Neck Exam: Positive: Supple; Negative: JVD, thyromegaly Chest Exam: Positive: Clear to auscultation, Normal air movement Heart Exam: Positive: Rate Normal, Regular Rhythm, Normal S1, Normal S2; Negative: Murmurs, Rubs Abdomen Exam: Positive: Normal bowel sounds, Soft; Negative: Tenderness, Hepatospenomegaly Extremity Exam: Negative: Clubbing, Cyanosis, Edema Psych Exam: Positive: Memory Intact, Oriented x 3 Vital Signs Vital Signs Date Time Temp Pulse Resp B/P (MAP) Pulse Ox O2 Delivery O2 Flow Rate FiO2 01/08/21 04:46 72 121/71 01/08/21 04:02 97.7 20 98 Room Air Laboratory Data Labs 24H Laboratory Tests 2 01/07/21 14:27: Nucleated Red Blood Cells % (auto) 0.0, Anion Gap 6L, Glomerular Filtration Rate > 60.0, Calcium Level 8.6, Total Bilirubin 0.3, Direct Bilirubin < 0.1, Aspartate Amino Transf (AST/SGOT) 6L, Alanine Aminotransferase (ALT/SGPT) 19, Alkaline Phosphatase 41L, Total Protein 6.0L, Albumin 3.1L, Albumin/Globulin Ratio 1.1L, Thyroid Stimulating Hormone (TSH) 0.578, Human Chorionic Gonadotropin, Qual NEGATIVE, Salicylates Level < 1.7L, Urine Opiates Screen NEGATIVE, Urine Methadone Screen NEGATIVE, Acetaminophen Level < 2.0L, Urine Barbiturates Screen NEGATIVE, Urine Phencyclidine Screen NEGATIVE, Urine Amphetamines Screen NEGATIVE, Urine Benzodiazepines Screen NEGATIVE, Urine Cocaine Metabolite Screen POSITIVEH, Urine Cannabinoids Screen NEGATIVE, Ethyl Alcohol Level < 0.003 01/07/21 17:44: Coronavirus (COVID-19)(PCR) NEGATIVE, Influenza Type A (RT-PCR) NEGATIVE, Influe nza Type B (RT-PCR) NEGATIVE, Respiratory Syncytial Virus (PCR) NEGATIVE CBC/BMP Laboratory Tests 01/07/21 14:27 Assessment/Plan 35 year old female with PMH of bipolar disorder, substance abuse has been admitted to inpatient mental health unit for unspecified depressive disorder with suicidal ideation. She is being examined here for medical history and physical. Depression with suicidal ideas as per psychiatry Swelling in the Pinna infection vs hematoma will give doxycycline. Abdominal pain due to laxatives I suspect this will improve with a good bowel movement. Plan / VTE VTE Prophylaxis Ordered?: No (freely ambulatory) Xiomara Delatorre MD Jan 08, 2021 08:06
[2021-01-08 16:00] VITALS: BP 98/58
[2021-01-08 16:03] VITALS: BP 98/58
[2021-01-08] MEDS: DOXYCYCLINE HYCLATE 100MG TABLET PO SCH (21:19)
[2021-01-08] MEDS: haloperidoL 5 MG TAB PO SCH (21:20)
[2021-01-09 06:39] VITALS: BP 114/57
[2021-01-09 07:46] LABS: CHOLESTEROL RISK RATIO 2.482 (<5)
[2021-01-09] MEDS: MULTIVITAMINS/MINERALS THERAP 1 TAB PO SCH (09:44)
[2021-01-09] MEDS: THIAMINE 100 MG TAB PO SCH ×2 (09:44→20:00)
[2021-01-09] MEDS: OXcarbazepine 150 MG TAB PO SCH ×2 (09:44→20:00)
[2021-01-09] MEDS: FOLIC ACID 1 MG TAB PO SCH (09:44)
[2021-01-09] MEDS: DOXYCYCLINE HYCLATE 100MG TABLET PO SCH ×2 (09:44→20:00)
[2021-01-09] MEDS: ACETAMINOPHEN TAB 650MG DOSE (2X325MG) PO PRN ×2 (13:12→19:59)
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
[2021-01-09 18:55] VITALS: BP 106/64
[2021-01-09] MEDS: haloperidoL 5 MG TAB PO SCH (20:00)
[2021-01-10] MEDS: OLANZapine ORAL DISINTEGRATING TAB 5MG PO PRN (04:22)
[2021-01-10] MEDS: ACETAMINOPHEN TAB 650MG DOSE (2X325MG) PO PRN ×3 (04:23→20:51)
[2021-01-10 06:37] VITALS: BP 90/54
[2021-01-10] MEDS: THIAMINE 100 MG TAB PO SCH (09:29)
[2021-01-10] MEDS: DOXYCYCLINE HYCLATE 100MG TABLET PO SCH ×2 (09:29→20:51)
[2021-01-10] MEDS: OXcarbazepine 150 MG TAB PO SCH ×2 (09:29→20:52)
[2021-01-10] MEDS ORDERED: HALOPERIDOL DECANOATE 100 MG/ML VIAL (J1631) IM ONE (11:45)
--- NOTE | 2021-01-10 11:47 | MHIPNPDOC ---
[facility] Progress Note Progress Note DATE OF SERVICE: 01/10/21 HISTORY: Patient is a 35 -year-old , female, with a history of bipolar disorder, PTSD, anxiety who presents with suicidal ideation and plan to crash her car and kill herself. Interval: Reviewed, patient has not been attending groups and has been mostly isolative to room. Seems very flat, anhedonic on interview although reports she is doing better. Has been taking her medications. Is poorly cooperative to interview and somnolent. Asked when she is leaving, made aware many more time in the hospital. Per collateral from Chanda Wallace [phone]: Call the listed number somebody answered stating 1 sec then hung up. Tried calling back several more times without being able to reach anyone. VITAL SIGNS: See below. NEW TEST RESULTS: Lipid panel within normal limits CURRENT MEDICATIONS: See below. MENTAL STATUS EXAMINATION: General Appearance: unkempt, appears older than stated age, hospital scubs/clothing, lying in bed Build: average Demeanor: withdrawn Eye Contact: avoidant Activity: slowed Behavior: cooperative, loss of interests, withdrawn Speech: clear, spontaneous, slow, low in volume Mood: depressed, irritable Mood "alright" Affect: flat, somnolent, mildly dysthymic Thought Process: logical/linear Thought Content (Delusions): other (suicidal ideation) Thought Content (Other): guarded Thought Content (Aggressive): none reported Perception (Hallucinations): Denies any hallucinations or delusions or paranoia Perception (Other): none reported Cognition (Impairment of): attention/concentration Cognition(Intelligence Est.): average Oriented: Awake, Alert, Oriented times three Insight: fair, improving Judgment: Poor, improving Psychosis: Psychotic Perceptions DIAGNOSES: Bipolar disorder, recent episode mixed PTSD per hx, with panic attacks Cluster B traits, denies self harm Cannabis use disorder, mild Cocaine use disorder, severe ASSESSMENT: No change. Tried to establish collateral but was unable to reach family member. Patient continues to be somewhat depressed, withdrawn and has not been attending groups, she continues to be medication compliant and reports some benefit on medication with regards to mood stabilization. Requires continued stay for stabilization and mood and to ensure safe discharge in context of serious suicide attempt on admission. MANAGEMENT PLAN: Continue medications, ordered Haldol decanoate 50 mg monthly BLAKELY as patient has history of noncompliance, patient was agreeable to injection reportedly and was made aware, rule side effects including EPS, rare NMS, blood pressure changes, sedation, heart rhythm disturbances. Encouraged to attend groups. Coordinating safe discharge plan with social work. TIME SPENT: 20 minutes. Vital Signs Vital Signs Date Time Temp Pulse Resp B/P (MAP) Pulse Ox O2 Delivery O2 Flow Rate FiO2 01/10/21 06:37 96.8 64 16 90/54 (66) 99 Room Air Current Medications Current Medications Medications (Trade) Dose Ordered Sig/Kevin Route PRN Reason Start Time Stop Time Status Last Admin Dose Admin Acetaminophen (Tylenol Tab) 650 mg Q6HP PRN PO HEADACHE or MILD DISCOMFORT 01/07/21 20:40 Cancel Acetaminophen (Tylenol Tab) 650 mg Q6HP PRN PO HEADACHE or MILD DISCOMFORT 01/07/21 21:25 01/10/21 04:23 Al Hydrox/Mg Hydrox/Simethicone (Mylanta) 30 ml Q4HP PRN PO HEARTBURN/INDIGESTION 01/07/21 20:40 Cancel Al Hydrox/Mg Hydrox/Simethicone (Mylanta) 30 ml Q4HP PRN PO HEARTBURN/INDIGESTION 01/07/21 21:25 Doxycycline Hyclate (Vibramycin) 100 mg BID PO 01/08/21 21:00 01/10/21 09:29 Folic Acid (Folic Acid) 1 mg DAILY PO 01/08/21 09:00 01/09/21 13:28 DC 01/09/21 09:44 Folic Acid (Folic Acid) 1 mg DAILY PO 01/08/21 09:00 Cancel Haloperidol (Haldol) 5 mg QHS PO 01/08/21 21:00 01/09/21 20:00 Home Med (Home Med List Complete!) ASDIRECTED XX 01/07/21 19:45 01/07/21 19:47 DC Lorazepam (Ativan) 2 mg ASDIRECTED PRN PO SEE PROTOCOL 01/07/21 20:40 Cancel Lorazepam (Ativan) 2 mg ASDIRECTED PRN PO SEE PROTOCOL 01/07/21 21:25 Cancel Magnesium Hydroxide (Milk Of Magnesia) 30 ml DAILYPRN PRN PO CONSTIPATION 01/07/21 20:40 Cancel Magnesium Hydroxide (Milk Of Magnesia) 30 ml DAILYPRN PRN PO CONSTIPATION 01/07/21 21:25 01/08/21 03:49 Multivitamins (Theragram-M) 1 tab DAILY PO 01/08/21 09:00 01/09/21 13:28 DC 01/09/21 09:44 Multivitamins (Theragram-M) 1 tab DAILY PO 01/08/21 09:00 Cancel Olanzapine (ZyPREXA ZYDIS) 5 mg Q4HP PRN PO ANXIETY/AGITATION 01/07/21 20:40 Cancel Olanzapine (ZyPREXA ZYDIS) 5 mg Q4HP PRN PO ANXIETY/AGITATION 01/07/21 21:25 01/10/21 04:22 Oxcarbazepine (Trileptal) 150 mg BID PO 01/08/21 09:00 01/10/21 09:29 Thiamine HCl (Thiamine HCl) 100 mg BID PO 01/07/21 21:00 01/10/21 09:01 DC 01/10/21 09:29 Thiamine HCl (Thiamine HCl) 100 mg BID PO 01/07/21 21:00 01/10/21 20:59 Cancel Trazodone HCl (Desyrel) 50 mg QHSP PRN PO INSOMNIA 01/07/21 20:40 Cancel Trazodone HCl (Desyrel) 50 mg QHSP PRN PO INSOMNIA 01/07/21 21:25 01/08/21 03:49 Allergies Coded Allergies: lamotrigine (Verified Allergy, Severe, FACE SWELLS, RASH, 02/10/20) prochlorperazine (Verified Allergy, Severe, TONGUE SWELLED, LOCK-JAW, 02/10/20) HIRAL ORDONEZ MD Jan 10, 2021 11:47
[2021-01-10] MEDS ORDERED: GABAPENTIN 400MG CAP PO ONE (12:20)
--- NOTE | 2021-01-10 12:33 | MHIPNPDOC ---
[facility] Progress Note Progress Note DATE OF SERVICE: 01/10/21 Patient reports restless legs, started pramipexole 0.125 milligrams 3 times daily, also gave one-time dose of gabapentin 400 mg, discontinued Haldol, including Haldol decannulate. Switch to Abilify 5 mg nightly for mood augmentation, impulsivity and Zoloft 50 mg p.o. daily for mood. Continue oxcarbazepine. Patient made aware of medication side effects prior to starting medications. Per collateral from aunt Chanda Wallace who returned call: "It really all started since her mom away tragically, found in the [place] bank May 19 coming up to be 3 years ago. She has not had time to grieve, a lot of depression there, states she is never been like this no past suicide attempts but she has got up on the curb and a friend saw this once. She has been taking drugs including crack daily for at least the last 7 days before she came to the hospital. During the stay she was very paranoid thought people were after her and was driving around town of never seen her manic when not on drugs, she is usually quiet and does not like to tell people her business, never seen or have psychotic behavior like talking to people or hallucinating or delusional behavior when not using drugs." Vital Signs Vital Signs Date Time Temp Pulse Resp B/P (MAP) Pulse Ox O2 Delivery O2 Flow Rate FiO2 01/10/21 06:37 96.8 64 16 90/54 (66) 99 Room Air Current Medications Current Medications Medications (Trade) Dose Ordered Sig/Kevin Route PRN Reason Start Time Stop Time Status Last Admin Dose Admin Acetaminophen (Tylenol Tab) 650 mg Q6HP PRN PO HEADACHE or MILD DISCOMFORT 01/07/21 20:40 Cancel Acetaminophen (Tylenol Tab) 650 mg Q6HP PRN PO HEADACHE or MILD DISCOMFORT 01/07/21 21:25 01/10/21 04:23 Al Hydrox/Mg Hydrox/Simethicone (Mylanta) 30 ml Q4HP PRN PO HEARTBURN/INDIGESTION 01/07/21 20:40 Cancel Al Hydrox/Mg Hydrox/Simethicone (Mylanta) 30 ml Q4HP PRN PO HEARTBURN/INDIGESTION 01/07/21 21:25 Doxycycline Hyclate (Vibramycin) 100 mg BID PO 01/08/21 21:00 01/10/21 09:29 Folic Acid (Folic Acid) 1 mg DAILY PO 01/08/21 09:00 01/09/21 13:28 DC 01/09/21 09:44 Folic Acid (Folic Acid) 1 mg DAILY PO 01/08/21 09:00 Cancel Haloperidol (Haldol) 5 mg QHS PO 01/08/21 21:00 01/09/21 20:00 Home Med (Home Med List Complete!) ASDIRECTED XX 01/07/21 19:45 01/07/21 19:47 DC Lorazepam (Ativan) 2 mg ASDIRECTED PRN PO SEE PROTOCOL 01/07/21 20:40 Cancel Lorazepam (Ativan) 2 mg ASDIRECTED PRN PO SEE PROTOCOL 01/07/21 21:25 Cancel Magnesium Hydroxide (Milk Of Magnesia) 30 ml DAILYPRN PRN PO CONSTIPATION 01/07/21 20:40 Cancel Magnesium Hydroxide (Milk Of Magnesia) 30 ml DAILYPRN PRN PO CONSTIPATION 01/07/21 21:25 01/08/21 03:49 Multivitamins (Theragram-M) 1 tab DAILY PO 01/08/21 09:00 01/09/21 13:28 DC 01/09/21 09:44 Multivitamins (Theragram-M) 1 tab DAILY PO 01/08/21 09:00 Cancel Olanzapine (ZyPREXA ZYDIS) 5 mg Q4HP PRN PO ANXIETY/AGITATION 01/07/21 20:40 Cancel Olanzapine (ZyPREXA ZYDIS) 5 mg Q4HP PRN PO ANXIETY/AGITATION 01/07/21 21:25 01/10/21 04:22 Oxcarbazepine (Trileptal) 150 mg BID PO 01/08/21 09:00 01/10/21 09:29 Thiamine HCl (Thiamine HCl) 100 mg BID PO 01/07/21 21:00 01/10/21 09:01 DC 01/10/21 09:29 Thiamine HCl (Thiamine HCl) 100 mg BID PO 01/07/21 21:00 01/10/21 20:59 Cancel Trazodone HCl (Desyrel) 50 mg QHSP PRN PO INSOMNIA 01/07/21 20:40 Cancel Trazodone HCl (Desyrel) 50 mg QHSP PRN PO INSOMNIA 01/07/21 21:25 01/08/21 03:49 Allergies Coded Allergies: lamotrigine (Verified Allergy, Severe, FACE SWELLS, RASH, 02/10/20) prochlorperazine (Verified Allergy, Severe, TONGUE SWELLED, LOCK-JAW, ) HIRAL ORDONEZ MD Jan 10, 2021 12:33
[2021-01-10] MEDS: SERTRALINE HCL 50 MG TAB PO SCH (15:17)
[2021-01-10] MEDS: PRAMIPEXOLE (MIRAPEX) 0.125 MG TAB PO SCH ×2 (15:18→20:51)
[2021-01-10 18:21] VITALS: BP 111/59
[2021-01-10] MEDS: ARIPiprazole 10 MG TAB PO SCH (20:51)
[2021-01-10] MEDS: traZODone 50 MG TAB PO PRN (20:51)
[2021-01-11] MEDS: OLANZapine ORAL DISINTEGRATING TAB 5MG PO PRN ×2 (01:38→20:28)
[2021-01-11] MEDS: ACETAMINOPHEN TAB 650MG DOSE (2X325MG) PO PRN ×3 (03:10→19:41)
[2021-01-11 06:00] VITALS: BP 121/72
[2021-01-11] MEDS: SERTRALINE HCL 50 MG TAB PO SCH (09:13)
[2021-01-11] MEDS: DOXYCYCLINE HYCLATE 100MG TABLET PO SCH ×2 (09:13→20:28)
[2021-01-11] MEDS: PRAMIPEXOLE (MIRAPEX) 0.125 MG TAB PO SCH ×3 (09:13→20:27)
[2021-01-11] MEDS: OXcarbazepine 150 MG TAB PO SCH ×2 (09:13→20:27)
--- NOTE | 2021-01-11 16:41 | MHIPNPDOC ---
[facility] Progress Note Progress Note DATE OF SERVICE: 01/11/21 HISTORY: Patient is a 35 -year-old , female, with a history of bipolar disorder, PTSD, anxiety who presents with suicidal ideation and plan to crash her car and kill herself. Today, 01/11/2021, she says she came to the Hospital because she didn't want to live, she says she feels better now. She has rested a lot, she feels the medications have medications. VITAL SIGNS: See below. NEW TEST RESULTS: Lipid panel within normal limits CURRENT MEDICATIONS: See below. MENTAL STATUS EXAMINATION: General Appearance: unkempt, appears older than stated age, hospital scubs/clothing, lying in bed Build: average Demeanor: cooperative Eye Contact: fair, at times it's avoidant Activity: she feels as if she has heavy legs but doesn't feel as if she is slow. She says her thoughts are more clear Behavior: cooperative, more motivated Speech: clear, spontaneous, normal in r/t/v Mood: Anxious ( "because I thought I would be going home with my kids") Mood : congruent with mood Affect: congruent Thought Process: logical/linear Thought Content (Delusions): Denies but reports she often gets paranoid Thought Content (Other): guarded Thought Content (Aggressive): none reported Perception (Hallucinations): Denies any hallucinations or delusions or paranoia Perception (Other): none reported Cognition (Impairment of): attention/concentration Cognition(Intelligence Est.): average Oriented: Awake, Alert, Oriented times three Insight: fair, improving Judgment: Limited Psychosis: Psychotic Perceptions DIAGNOSES: Bipolar disorder, recent episode mixed PTSD per hx, with panic attacks Cluster B traits, denies self harm Cannabis use disorder, mild Cocaine use disorder, severe ASSESSMENT: She says she feels better, she was cooperative and she wants to go home but I informed her she won't get discharged this weekend. She said she had not been taking her medications before coming to the hospital because when she gets depressed she doesn't take them MANAGEMENT PLAN: Continue with current treatment plan TIME SPENT: 20 minutes. Vital Signs Vital Signs Date Time Temp Pulse Resp B/P (MAP) Pulse Ox O2 Delivery O2 Flow Rate FiO2 01/11/21 10:20 Room Air 01/11/21 06:00 98.7 66 18 121/72 (88) 98 Current Medications Current Medications Medications (Trade) Dose Ordered Sig/Kevin Route PRN Reason Start Time Stop Time Status Last Admin Dose Admin Acetaminophen (Tylenol Tab) 650 mg Q6HP PRN PO HEADACHE or MILD DISCOMFORT 01/07/21 20:40 Cancel Acetaminophen (Tylenol Tab) 650 mg Q6HP PRN PO HEADACHE or MILD DISCOMFORT 01/07/21 21:25 01/11/21 09:13 Al Hydrox/Mg Hydrox/Simethicone (Mylanta) 30 ml Q4HP PRN PO HEARTBURN/INDIGESTION 01/07/21 20:40 Cancel Al Hydrox/Mg Hydrox/Simethicone (Mylanta) 30 ml Q4HP PRN PO HEARTBURN/INDIGESTION 01/07/21 21:25 Aripiprazole (AbiLIFY) 10 mg QHS PO 01/10/21 21:00 01/10/21 20:51 Doxycycline Hyclate (Vibramycin) 100 mg BID PO 01/08/21 21:00 01/11/21 09:13 Folic Acid (Folic Acid) 1 mg DAILY PO 01/08/21 09:00 01/09/21 13:28 DC 01/09/21 09:44 Folic Acid (Folic Acid) 1 mg DAILY PO 01/08/21 09:00 Cancel Haloperidol (Haldol) 5 mg QHS PO 01/08/21 21:00 01/10/21 12:22 DC 01/09/21 20:00 Home Med (Home Med List Complete!) ASDIRECTED XX 01/07/21 19:45 01/07/21 19:47 DC Lorazepam (Ativan) 2 mg ASDIRECTED PRN PO SEE PROTOCOL 01/07/21 20:40 Cancel Lorazepam (Ativan) 2 mg ASDIRECTED PRN PO SEE PROTOCOL 01/07/21 21:25 Cancel Magnesium Hydroxide (Milk Of Magnesia) 30 ml DAILYPRN PRN PO CONSTIPATION 01/07/21 20:40 Cancel Magnesium Hydroxide (Milk Of Magnesia) 30 ml DAILYPRN PRN PO CONSTIPATION 01/07/21 21:25 01/08/21 03:49 Multivitamins (Theragram-M) 1 tab DAILY PO 01/08/21 09:00 01/09/21 13:28 DC 01/09/21 09:44 Multivitamins (Theragram-M) 1 tab DAILY PO 01/08/21 09:00 Cancel Olanzapine (ZyPREXA ZYDIS) 5 mg Q4HP PRN PO ANXIETY/AGITATION 01/07/21 20:40 Cancel Olanzapine (ZyPREXA ZYDIS) 5 mg Q4HP PRN PO ANXIETY/AGITATION 01/07/21 21:25 01/11/21 01:38 Oxcarbazepine (Trileptal) 150 mg BID PO 01/08/21 09:00 01/11/21 09:13 Pramipexole Dihydrochloride (Mirapex) 0.125 mg TID PO 01/10/21 16:00 01/11/21 16:01 Sertraline HCl (Zoloft) 50 mg DAILY PO 01/10/21 09:00 01/11/21 09:13 Thiamine HCl (Thiamine HCl) 100 mg BID PO 01/07/21 21:00 01/10/21 09:01 DC 01/10/21 09:29 Thiamine HCl (Thiamine HCl) 100 mg BID PO 01/07/21 21:00 01/10/21 20:59 Cancel Trazodone HCl (Desyrel) 50 mg QHSP PRN PO INSOMNIA 01/07/21 20:40 Cancel Trazodone HCl (Desyrel) 50 mg QHSP PRN PO INSOMNIA 01/07/21 21:25 01/10/21 20:51 Allergies Coded Allergies: lamotrigine (Verified Allergy, Severe, FACE SWELLS, RASH, 02/10/20) prochlorperazine (Verified Allergy, Severe, TONGUE SWELLED, LOCK-JAW, 02/10/20) ERICA PEDROZA MD Jan 11, 2021 16:41
[2021-01-11 19:02] VITALS: BP 110/61
[2021-01-11] MEDS: ARIPiprazole 10 MG TAB PO SCH (20:28)
[2021-01-11] MEDS: traZODone 50 MG TAB PO PRN (21:41)
[2021-01-12 06:00] VITALS: BP 108/56
[2021-01-12] MEDS: ACETAMINOPHEN TAB 650MG DOSE (2X325MG) PO PRN ×2 (07:25→21:19)
[2021-01-12] MEDS: SERTRALINE HCL 50 MG TAB PO SCH (10:10)
[2021-01-12] MEDS: PRAMIPEXOLE (MIRAPEX) 0.125 MG TAB PO SCH ×3 (10:10→20:01)
[2021-01-12] MEDS: OXcarbazepine 150 MG TAB PO SCH ×2 (10:10→20:01)
[2021-01-12] MEDS: DOXYCYCLINE HYCLATE 100MG TABLET PO SCH ×2 (10:10→20:01)
--- NOTE | 2021-01-12 11:55 | MHIPNPDOC ---
[facility] Progress Note Progress Note DATE OF SERVICE: 01/12/21 Psychiatry progress Note HISTORY: Patient is a 35 -year-old , female, with a history of bipolar disorder, PTSD, anxiety who presents with suicidal ideation and plan to crash her car and kill herself. VITAL SIGNS: See below. NEW TEST RESULTS: Lipid panel within normal limits CURRENT MEDICATIONS: See below. MENTAL STATUS EXAMINATION: General Appearance: unkempt, appears older than stated age, hospital scubs/clothing, sitting on her bed Build: average Demeanor: cooperative Eye Contact: avoidant Activity: no psychomotor retardation or hyperactivity Behavior: cooperative, more motivated Speech: clear, spontaneous, normal in r/t/v Mood: Euthymic Mood : congruent with mood Affect: congruent Thought Process: logical/linear Thought Content (Delusions): Denies feeling paranoid Thought Content (Other): guarded Thought Content (Aggressive): none reported Perception (Hallucinations): Denies any hallucinations or delusions or paranoia Perception (Other): none reported Cognition (Impairment of): attention/concentration Cognition(Intelligence Est.): average Oriented: Awake, Alert, Oriented times three Insight: improving Judgment: improving Psychosis: Psychotic Perceptions DIAGNOSES: Bipolar disorder, recent episode mixed PTSD per hx, with panic attacks Cluster B traits, denies self harm Cannabis use disorder, mild Cocaine use disorder, severe ASSESSMENT: She is stable, she seems to beimproving with current medications. MANAGEMENT PLAN: Continue with current treatment plan TIME SPENT: 20 minutes. Vital Signs Vital Signs Date Time Temp Pulse Resp B/P (MAP) Pulse Ox O2 Delivery O2 Flow Rate FiO2 01/12/21 10:40 Room Air 01/12/21 06:00 97.7 61 16 108/56 (73) 98 Current Medications Current Medications Medications (Trade) Dose Ordered Sig/Kevin Route PRN Reason Start Time Stop Time Status Last Admin Dose Admin Acetaminophen (Tylenol Tab) 650 mg Q6HP PRN PO HEADACHE or MILD DISCOMFORT 01/07/21 20:40 Cancel Acetaminophen (Tylenol Tab) 650 mg Q6HP PRN PO HEADACHE or MILD DISCOMFORT 01/07/21 21:25 01/12/21 07:25 Al Hydrox/Mg Hydrox/Simethicone (Mylanta) 30 ml Q4HP PRN PO HEARTBURN/INDIGESTION 01/07/21 20:40 Cancel Al Hydrox/Mg Hydrox/Simethicone (Mylanta) 30 ml Q4HP PRN PO HEARTBURN/INDIGESTION 01/07/21 21:25 Aripiprazole (AbiLIFY) 10 mg QHS PO 01/10/21 21:00 01/11/21 20:28 Doxycycline Hyclate (Vibramycin) 100 mg BID PO 01/08/21 21:00 01/12/21 10:10 Folic Acid (Folic Acid) 1 mg DAILY PO 01/08/21 09:00 01/09/21 13:28 DC 01/09/21 09:44 Folic Acid (Folic Acid) 1 mg DAILY PO 01/08/21 09:00 Cancel Haloperidol (Haldol) 5 mg QHS PO 01/08/21 21:00 01/10/21 12:22 DC 01/09/21 20:00 Home Med (Home Med List Complete!) ASDIRECTED XX 01/07/21 19:45 01/07/21 19:47 DC Lorazepam (Ativan) 2 mg ASDIRECTED PRN PO SEE PROTOCOL 01/07/21 20:40 Cancel Lorazepam (Ativan) 2 mg ASDIRECTED PRN PO SEE PROTOCOL 01/07/21 21:25 Cancel Magnesium Hydroxide (Milk Of Magnesia) 30 ml DAILYPRN PRN PO CONSTIPATION 01/07/21 20:40 Cancel Magnesium Hydroxide (Milk Of Magnesia) 30 ml DAILYPRN PRN PO CONSTIPATION 01/07/21 21:25 01/08/21 03:49 Multivitamins (Theragram-M) 1 tab DAILY PO 01/08/21 09:00 01/09/21 13:28 DC 01/09/21 09:44 Multivitamins (Theragram-M) 1 tab DAILY PO 01/08/21 09:00 Cancel Olanzapine (ZyPREXA ZYDIS) 5 mg Q4HP PRN PO ANXIETY/AGITATION 01/07/21 20:40 Cancel Olanzapine (ZyPREXA ZYDIS) 5 mg Q4HP PRN PO ANXIETY/AGITATION 01/07/21 21:25 01/11/21 20:28 Oxcarbazepine (Trileptal) 150 mg BID PO 01/08/21 09:00 01/12/21 10:10 Pramipexole Dihydrochloride (Mirapex) 0.125 mg TID PO 01/10/21 16:00 01/12/21 10:10 Sertraline HCl (Zoloft) 50 mg DAILY PO 01/10/21 09:00 01/12/21 10:10 Thiamine HCl (Thiamine HCl) 100 mg BID PO 01/07/21 21:00 01/10/21 09:01 DC 01/10/21 09:29 Thiamine HCl (Thiamine HCl) 100 mg BID PO 01/07/21 21:00 01/10/21 20:59 Cancel Trazodone HCl (Desyrel) 50 mg QHSP PRN PO INSOMNIA 01/07/21 20:40 Cancel Trazodone HCl (Desyrel) 50 mg QHSP PRN PO INSOMNIA 01/07/21 21:25 01/11/21 21:41 Allergies Coded Allergies: lamotrigine (Verified Allergy, Severe, FACE SWELLS, RASH, 02/10/20) prochlorperazine (Verified Allergy, Severe, TONGUE SWELLED, LOCK-JAW, 02/10/20) ERICA PEDROZA MD Jan 12, 2021 11:54
[2021-01-12] MEDS: NICOTINE 14 MG/24 HR TRANSDERMAL TD SCH (16:11)
[2021-01-12 16:56] VITALS: BP 117/58
[2021-01-12 16:57] VITALS: BP 115/57
[2021-01-12] MEDS: ARIPiprazole 10 MG TAB PO SCH (20:01)
[2021-01-12] MEDS: OLANZapine ORAL DISINTEGRATING TAB 5MG PO PRN (20:03)
[2021-01-12] MEDS: traZODone 50 MG TAB PO PRN (21:18)
[2021-01-13] MEDS: OLANZapine ORAL DISINTEGRATING TAB 5MG PO PRN (05:24)
[2021-01-13 06:12] VITALS: BP 129/61
[2021-01-13] MEDS: DOXYCYCLINE HYCLATE 100MG TABLET PO SCH (08:42)
[2021-01-13] MEDS: NICOTINE 14 MG/24 HR TRANSDERMAL TD SCH (08:42)
[2021-01-13] MEDS: SERTRALINE HCL 50 MG TAB PO SCH (08:42)
[2021-01-13] MEDS: OXcarbazepine 150 MG TAB PO SCH (08:42)
[2021-01-13] MEDS: PRAMIPEXOLE (MIRAPEX) 0.125 MG TAB PO SCH (08:42)
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
[2021-01-13] MEDS ORDERED: ABIL10TA9 PO (11:35)
[2021-01-13] MEDS ORDERED: SERT50TA29 PO (11:35)
[2021-01-13] MEDS ORDERED: NICO14PA TD (11:35)
[2021-01-13] MEDS ORDERED: DOXY100T PO (11:35)
[2021-01-13] MEDS ORDERED: OXCA150T21 PO (11:35)
[2021-01-13] MEDS ORDERED: HALD50IN4 IM (11:35)
[2021-01-13] MEDS ORDERED: TRAZ-252 PO (11:35)
[2021-01-13] MEDS ORDERED: MIRA0.12 PO (11:35)
== END 2021-01-13 12:41 | disposition home or self-care (01) | DRG 753 ==
LOC: M ED 13:25 → M ED INP 20:36 → M PSY 01-08 01:43
PROVIDERS: ADMIT Specialist; ATTEND Student in an Organized Health Care Education/Training Program
DX: F31.60 Bipolar disorder, current episode mixed, unspecified (principal); F14.20 Cocaine dependence, uncomplicated; R45.851 Suicidal ideations; F43.10 Post-traumatic stress disorder, unspecified; F60.89 Other specific personality disorders; F12.10 Cannabis abuse, uncomplicated; F17.200 Nicotine dependence, unspecified, uncomplicated; H93.8X2 Other specified disorders of left ear; Z81.8 Family history of other mental and behavioral disorders; Z20.822 Contact with and (suspected) exposure to COVID-19; Z88.8 Allergy status to other drugs, medicaments and biological substances; Z86.16 Personal history of COVID-19

== ENCOUNTER → 2021-07-04 | Outpatient (REF) | payer MEDICAID ==
[~2021-07-04] MED LIST changes: +ABIL10TA9 PO; -CEFD1CAP8 PO; +CEFD300C41 PO; +HALD50IN4 IM; +MIRA0.12 PO; +NICO14PA TD; +OXCA150T21 PO; +SERT50TA29 PO; +TRAZ-252 PO
[2021-07-04 22:09] LABS: APPEARANCE, URINE HAZY (CLEAR); BACTERIA, URINE AUTO NEGATIVE (NEGATIVE); BILIRUBIN, URINE AUTO NEGATIVE (NEGATIVE); BLOOD, URINE BLOOD 1+ (NEGATIVE); COLOR, URINE YELLOW (YELLOW); GLUCOSE, URINE (UA) AUTO NEGATIVE (NEGATIVE); KETONE, URINE AUTO NEGATIVE (NEGATIVE); LEUKOCYTE ESTERASE, URINE AUTO 3+ (NEGATIVE); MUCUS, URINE SMALL (NEGATIVE); NITRITE, URINE AUTO NEGATIVE (NEGATIVE); PROTEIN, URINE AUTO NEGATIVE (NEGATIVE); RBC, URINE AUTO 29 /HPF (0-3); SPECIFIC GRAVITY URINE AUTO 1.024 (1.002-1.035); SQUAMOUS EPITHELIAL CELL UR AU 1 /HPF (0-6); WBC, URINE AUTO 72 /HPF (0-3)
[2021-07-04 23:31] LABS: GC DNA AMPLIFICATION NEGATIVE (NEGATIVE)
== END ==
LOC: M LAB REF 21:34
PROVIDERS: ATTEND Physician Assistant
DX: R30.0 Dysuria (principal)

== ENCOUNTER → 2021-07-09 | Outpatient (REF) | payer MEDICAID | LOC: M PLALAB 10:10 | PROVIDERS: ATTEND Specialist | DX: Z01.419 Encounter for gynecological examination (general) (routine) without abnormal findings (principal) ==

== ENCOUNTER 2021-08-26 11:20 | Emergency (ER) | payer MEDICAID ==
[~2021-08-26] VITALS: Ht 167.6 cm; Wt 77.3 kg
[2021-08-26] MEDS ORDERED: KETOROLAC 30 MG/ML 1ML VIAL IV ONE (13:15)
[2021-08-26] MEDS ORDERED: NS 1,000 ML IV ONE (13:15)
[2021-08-26 13:46] LABS: BASO # 0.1 10^3/uL (0.0-0.2); BASO % 0.9 % (0.0-1.0); EOS # 0.1 10^3/uL (0.0-0.5); EOS % 1.2 % (0.0-3.0); HEMATOCRIT 41.1 % (36.0-47.0); HEMOGLOBIN 13.5 g/dl (12.0-15.5); LYMPH # 1.7 10^3/uL (1.5-5.0); MEAN CORPUSCULAR HEMOGLOBIN 28.9 pg (27.0-33.0); MEAN CORPUSCULAR HGB CONC 32.8 g/dl (32.0-36.5); MONO # 0.4 10^3/uL (0.0-0.8); MONO % 6.1 % (2.0-8.0); NEUTROPHILS # 4.4 10^3/uL (1.5-8.5); NEUTROPHILS % 66.5 % (36.0-66.0); PLATELET COUNT, AUTOMATED 152 10^3/uL (150-450); RED BLOOD COUNT 4.67 10^6/uL (4.00-5.40); WHITE BLOOD COUNT 6.7 10^3/uL (4.0-10.0)
[2021-08-26 14:13] LABS: BLOOD UREA NITROGEN 6 MG/DL (7-18); CALCIUM LEVEL 8.9 MG/DL (8.5-10.1); CARBON DIOXIDE LEVEL 27 MEQ/L (21-32); CHLORIDE LEVEL 109 MEQ/L (98-107); GLOMERULAR FILTRATION RATE > 60.0 (>60); GLUCOSE, FASTING 87 MG/DL (70-100); SODIUM LEVEL 139 MEQ/L (136-145)
[2021-08-26 14:15] LABS: ERYTHROCYTE SEDIMENTATION RATE 7 mm/hr (0-20)
[2021-08-26 14:17] LABS: HCG, SERUM QUALITATIVE NEGATIVE (NEGATIVE)
[2021-08-26 15:29] VITALS: BP 120/56
== END 2021-08-26 15:48 | disposition home or self-care (01) ==
LOC: M ED 11:20
DX: R51.9 Headache, unspecified (principal); F31.9 Bipolar disorder, unspecified; Z79.899 Other long term (current) drug therapy; Z88.8 Allergy status to other drugs, medicaments and biological substances; Z77.098 Contact with and (suspected) exposure to other hazardous, chiefly nonmedicinal, chemicals
CPT/HCPCS: 70110; 80048; 84703; 85025; 85652; 86140; 96361; 96374; 99284; J1885

== ENCOUNTER 2024-07-06 12:14 | Emergency (ER) | payer OTHER ==
[~2024-07-06] VITALS: Ht 170.2 cm; Wt 69.1 kg
[~2024-07-06 12:14] MED LIST changes: +CEFD1CAP9 PO; -CEFD300C41 PO; -LIDO1CRE42 TOP; +LIDO30CR18 TOP
[2024-07-06 12:16] VITALS: BP 127/69; TEMP 97.6; O2SAT 100
[2024-07-06] MEDS ORDERED: AMOX875T2 PO (15:05)
[2024-07-06] MEDS ORDERED: KETO10TAB PO (15:05)
== END 2024-07-06 15:12 | disposition home or self-care (01) ==
LOC: M ED 12:14
DX: J06.9 Acute upper respiratory infection, unspecified (principal); B34.2 Coronavirus infection, unspecified; Z88.8 Allergy status to other drugs, medicaments and biological substances; Z79.2 Long term (current) use of antibiotics; Z79.899 Other long term (current) drug therapy